=== PATIENT | female | born 1960 | race Caucasian/White ===

== ENCOUNTER 2020-01-11 08:06 | Outpatient (CLI) | payer OTHER, SELFPAY ==
[2020-01-11 08:43] LABS: Basophils Absolute Auto 0.1 K/mm3 (0.0-0.1); Basophils Percent Auto 1.3 % (0.2-1.2); Eosinophils Absolute Auto 0.1 K/mm3 (0-0.3); Eosinophils Percent Auto 2.4 % (0-4.4); Hematocrit 43.1 % (37.0-47.0); Hemoglobin 14.3 g/dL (12.0-15.0); Immature Granulocyte Absolute 0.03 K/mm3 (0.00-0.031); Immature Granulocyte Percent A 0.6 % (0-0.5); Lymphocytes Absolute Auto 1.43 K/mm3 (0.9-3.2); Lymphocytes Percent Auto 26.8 % (18.3-44.2); Mean Corpuscular HGB Conc 33.2 g/dl (32-36); Mean Corpuscular Hemoglobin 28.4 pg (26-34); Mean Corpuscular Volume 85.5 fl (80-100); Mean Platelet Volume 9.2 fl (7.4-10.4); Monocytes Absolute Auto 0.4 K/mm3 (0.1-0.6); Monocytes Percent Auto 6.8 % (2.6-8.5); Neutrophils Absolute Auto 3.3 K/mm3 (1.3-6.7); Neutrophils Percent Auto 62.1 % (45.5-73.1); Platelet Count Result 226 k/mm3 (150-375); Red Blood Count 5.04 M/mm3 (4.2-5.4); Red Cell Distribution Width 13.1 % (11.5-14.5); White Blood Count 5.3 K/mm3 (4.5-10.0)
[2020-01-11 08:47] LABS: Add Urine Microscopic? YES; Appearance Urine Clear (Clear); Bilirubin Urine Negative (Negative); Blood Urine Negative (Negative); Color Urine Straw (Yellow); Glucose Urine UA Negative (Negative); Ketones Urine Negative (Negative); Leukocyte Esterase Ur Trace LEU/UL (Negative); Nitrate Urine Negative (Negative); Protein Urine Negative (Negative); RBC Urine 0-2 /hpf (0-2); Specific Grav Ur 1.008 (1.001-1.035); Squamous Epithelial Cell Urine Rare /hpf (Few); Urobilinogen Urine Negative mg/dL (<2.0)
[2020-01-11 08:55] LABS: Alanine Aminotransferase 34 U/L (4-35); Albumin Level 4.3 g/dL (3.5-5.1); Alkaline Phosphatase 70 U/L (38-126); Anion Gap 6 mmol/L (8-16); Aspartate Amino Transferase 29 U/L (14-36); Bilirubin,Total 0.4 mg/dL (0.2-1.3); Blood Urea Nitrogen 16 mg/dL (7-17); Calcium 9.3 mg/dL (8.4-10.2); Carbon Dioxide 29 mmol/L (22-30); Chloride 105 mmol/L (98-107); Cholesterol 151 mg/dL (0-200); Estimated Glomerular Filt Rate > 60; Glucose 117 mg/dL (65-105); HDL Direct 46 mg/dL; Potassium 4.1 mmol/L (3.4-5.0); Sodium 140 mmol/L (137-145); Triglycerides 88 mg/dL (<150)
[2020-01-11 09:00] LABS: Hemoglobin A1C 5.7 % (<5.7)
[2020-01-11 09:06] LABS: LDL Cholesterol Direct 86 mg/dL
[2020-01-11 09:35] LABS: Free T4 Free Thyroxine 0.74 ng/mL (0.78-2.19)
== END 2020-01-11 08:07 | disposition home or self-care (01) ==
LOC: ANHLAB 08:08
PROVIDERS: PCP Physician Assistant; Visit Provider Physician Assistant
DX: I25.10 Atherosclerotic heart disease of native coronary artery without angina pectoris (principal); E03.9 Hypothyroidism, unspecified; Z13.1 Encounter for screening for diabetes mellitus; E55.9 Vitamin D deficiency, unspecified; Z79.899 Other long term (current) drug therapy
CPT/HCPCS: 36415; 80048; 80061; 80076; 81001; 82306; 83036; 84439; 84443; 85025

== ENCOUNTER 2020-02-29 16:25 | Outpatient (CLI) | payer OTHER, SELFPAY ==
--- NOTE | ~2020-02-29 | CT_ITS ---
EXAMINATION: CT soft tissue neck w con DATE: 02/29/2020 17:10 INDICATION: Localized swelling, mass, and lump of the neck. TECHNIQUE: Computed tomography (CT) of the neck was performed with 75 mL Omnipaque-350 intravenous co ntrast. Automated exposure control and iterative reconstruction technique were employed. The dose-sage gth product was 446.88 mGy-cm. COMPARISON: Chest CT 09/08/2018 FINDINGS: There are changes of right hemithyroidectomy. There are no pathologically enlarged lymph no robb. There is plaque in the proximal internal carotid arteries with less than 50% stenosis relative t o normal distal artery lumen diameters. There is mild mucosal thickening in the maxillary sinuses. Th e mastoid air cells are normal. There is mild cervical spondylosis. IMPRESSION: 1. No abnormal mass or lymphadenopathy. Reviewed, dictated and finalized at location A.
[2020-02-29 17:19] LABS: Estimated Glomerular Filt Rate > 60
== END 2020-02-29 16:26 | disposition home or self-care (01) ==
LOC: ANHIMG 16:26
PROVIDERS: PCP Physician Assistant; Visit Provider Physician Assistant
DX: R22.1 Localized swelling, mass and lump, neck (principal)
CPT/HCPCS: 70491; Q9967

== ENCOUNTER 2020-04-08 11:18 | Outpatient (CLI) | payer OTHER, SELFPAY ==
--- NOTE | 2020-04-20 16:06 | WPDHOMESLEEP ---
Sleep Study - Home Unattended Date of Study: 04/08/20 Ordering Provider: Christina Myles PA-C Interpreting Physician: Clarice Lee MD Home Sleep Study Type: Watch PAT Height: 1.55 m Weight: 98.883 kg Body Mass Index: 41.1 Neck Circumference (inches): 14 [place]: 1 Reason for Sleep Study Sleep walking Sleep History Autumn Landry is a 59 yo female who feels tired in the day and has sleep walked at night. she took a sleep aid for several weeks but stopped it because she did not like the way she felt the day after. She frequently snores and is frequently loud enough that others complain about it. She rarely awakens at night with heartburn, belching or coughing. She occasionally awakens from sleep feeling short of breath. She occasionally has trouble sleeping with a cold, occasionally wakes up gasping for breath during the night. She occasionally sweats excessively at night and notices her heart pounding or beating irregularly at night. She rarely falls asleep during the day, rarely involuntarily, never while driving. She does not fall asleep during physical effort. She does not have loss of muscle tone with strong emotion. She rarely has daytime difficulties due to excessive sleepiness. She does not feel paralyzed on waking or falling asleep and does not have vivid dreamlike scenes upon awakening or falling asleep. She has never a freight to go to sleep. She rarely has nightmares. She occasionally remembers her dreams. She frequently has racing thoughts. She rarely feels sad or depressed. She frequently has anxiety. She occasionally has muscular tension. She never notices parts of her body jerking at night. She occasionally kicks at night. She rarely has crawling or aching feelings in her legs around bedtime. She rarely has leg pain during the night. She frequently has morning jaw pain and frequently grinds her teeth during sleep. Normal bedtime is between 8:00 and 9:00 p.m. falling asleep within 15 minutes, waking 4-6 times at night to go to the bathroom, take a drink of water and reposition. She wakes in the morning at 5:00 a.m.. She does not take naps. She feels better in the morning compared to other times a day. Habits: She never smoked tobacco, two cups of coffee in the morning, 1-2 alcoholic beverages on occasion. [facility] Past Medical History Medical History (Updated 04/20/20 @ 16:43 by Clarice Lee MD) Hyperlipidemia Hypertension Hypothyroidism Osteoarthritis of both knees Surgical History Surgical History History of bladder surgery History of hysterectomy History of thyroid surgery History of tubal ligation Family History Family History Mother Family history of malignant neoplasm Father Family history of elevated blood lipids Mother Family history of diabetes mellitus in first degree relative Mother Cancer Social History Social History Smoking status: Never smoker Second hand tobacco smoke exposure: No Alcohol intake: current Drinks per week: 3 Spiritual care concerns: No Medications Home Medications Medication Instructions Recorded Confirmed Type calcium polycarbophil 625 mg tablet 1,250 mg PO DAILY 05/08/19 04/18/20 History cholecalciferol (vitamin D3) 25 1,000 unit PO HS 05/08/19 04/18/20 History mcg (1,000 unit) capsule meloxicam 7.5 mg tablet 7.5 mg PO DAILY 05/08/19 04/18/20 History metoprolol succinate 100 mg 100 mg PO DAILY 05/08/19 04/18/20 History capsule sprinkle, ext. release 24 hr multivitamin 1 tablet PO HS 05/08/19 04/18/20 History aspirin 81 mg tablet,delayed 81 mg PO HS 01/27/20 04/18/20 History release hydrochlorothiazide 25 mg PO QAM 04/18/20 04/18/20 History levothyroxine [Euthyrox] 112 mcg PO QAM 04/18/20 04/18/20 History losartan 100 mg PO QAM 04/18/20 04/18/20 His
[2020-04-20 16:11] VITALS: BMI 41.1
== END 2020-04-08 11:19 | disposition home or self-care (01) ==
LOC: ANHCSM 11:18
PROVIDERS: PCP Physician Assistant; Visit Provider Physician Assistant
DX: G47.33 Obstructive sleep apnea (adult) (pediatric) (principal)
CPT/HCPCS: 95800

== ENCOUNTER 2020-04-18 08:00 | Outpatient (CLI) | payer OTHER, SELFPAY ==
--- NOTE | 2020-04-18 08:54 | ECG_ITS ---
Measurements Intervals [place] Rate: 67 P: 37 VA: 124 QRS: -1 QRSD: 100 T: 32 QT: 382 QTc: 404 Interpretive Statements SINUS RHYTHM INCOMPLETE RIGHT BUNDLE BRANCH BLOCK VOLTAGE CRITERIA FOR LVH- I, III, AVL BORDERLINE ECG Electronically Signed On 04-18-2020 11:22:19 [employer] by Jesse Fam D.O.
[2020-04-18 09:10] LABS: Basophils Absolute Auto 0.1 K/mm3 (0.0-0.1); Basophils Percent Auto 1.4 % (0.2-1.2); Eosinophils Absolute Auto 0.1 K/mm3 (0-0.3); Eosinophils Percent Auto 1.6 % (0-4.4); Hematocrit 43.4 % (37.0-47.0); Hemoglobin 14.7 g/dL (12.0-15.0); Immature Granulocyte Absolute 0.02 K/mm3 (0.00-0.031); Immature Granulocyte Percent A 0.4 % (0-0.5); Lymphocytes Absolute Auto 1.62 K/mm3 (0.9-3.2); Lymphocytes Percent Auto 28.5 % (18.3-44.2); Mean Corpuscular HGB Conc 33.9 g/dl (32-36); Mean Corpuscular Hemoglobin 29.2 pg (26-34); Mean Corpuscular Volume 86.1 fl (80-100); Monocytes Absolute Auto 0.5 K/mm3 (0.1-0.6); Neutrophils Absolute Auto 3.4 K/mm3 (1.3-6.7); Neutrophils Percent Auto 59.1 % (45.5-73.1); Platelet Count Result 242 k/mm3 (150-375); Red Blood Count 5.04 M/mm3 (4.2-5.4); Red Cell Distribution Width 12.8 % (11.5-14.5); White Blood Count 5.7 K/mm3 (4.5-10.0)
[2020-04-18 09:25] LABS: Anion Gap 5 mmol/L (8-16); Blood Urea Nitrogen 15 mg/dL (7-17); Calcium 9.6 mg/dL (8.4-10.2); Carbon Dioxide 34 mmol/L (22-30); Chloride 103 mmol/L (98-107); Estimated Glomerular Filt Rate > 60; Glucose 108 mg/dL (65-105); Sodium 142 mmol/L (137-145)
== END 2020-04-18 08:01 | disposition home or self-care (01) ==
LOC: ANHSURGERY 08:03
PROVIDERS: Anesthesiology; PCP Physician Assistant; Visit Provider Orthopaedic Surgery
DX: Z01.818 Encounter for other preprocedural examination (principal); M17.12 Unilateral primary osteoarthritis, left knee; I10 Essential (primary) hypertension; I45.10 Unspecified right bundle-branch block
CPT/HCPCS: 36415; 80048; 85025; 93005

== ENCOUNTER 2020-05-06 15:57 | Outpatient (CLI) | payer OTHER, SELFPAY ==
--- NOTE | ~2020-05-06 | MM_ITS ---
EXAMINATION: MM screening tete BI w graciela HISTORY: Screening TECHNIQUE: Craniocaudal and mediolateral oblique 3-D tomosynthesis images were obtained and synthetic 2-D images were generated. CAD analysis was submitted and interpreted. COMPARISON: Comparison to multiple prior studies sequentially, with oldest reviewed study dated 03/03. BREAST PARENCHYMAL COMPOSITION: There are scattered areas of fibroglandular density. FINDINGS: There is no evidence of suspicious mass, calcification, or architectural distortion to sugg est malignancy in either breast. There has been no suspicious interval change. IMPRESSION: 1. No mammographic evidence of malignancy. 2. Recommend routine screening mammography in one year. BI-RADS Category 1: Negative Reviewed, dictated and finalized at location A. MILLER
== END 2020-05-06 15:58 | disposition home or self-care (01) ==
LOC: ANHIMG 16:00
PROVIDERS: PCP Physician Assistant; Visit Provider Physician Assistant
DX: Z12.31 Encounter for screening mammogram for malignant neoplasm of breast (principal)
CPT/HCPCS: 77063; 77067

== ENCOUNTER 2020-05-14 00:31 | Outpatient (CLI) | payer OTHER, SELFPAY ==
[2020-05-14 20:15] LABS: SARS-CoV-2 RNA PCR Negative
== END 2020-05-14 00:32 | disposition home or self-care (01) ==
LOC: ANHCOVIDDT 00:31
PROVIDERS: PCP Physician Assistant; Visit Provider Orthopaedic Surgery
DX: Z01.818 Encounter for other preprocedural examination (principal); Z20.828 Contact with and (suspected) exposure to other viral communicable diseases
CPT/HCPCS: 87635; C9803; U0003

== ENCOUNTER 2020-05-17 00:29 | Day surgery (SDC) | payer OTHER, SELFPAY ==
[2020-04-18 08:52] VITALS: BP 159/79; PULSE 68; RESP 16; TEMP 37.3; O2SAT 99; BMI 39.5
--- NOTE | 2020-05-16 12:26 | WPDANESEPPF ---
Anes - Initial Pre Proc Eval Procedure: Operation Date: 05/17/20 07:30 Proposed Procedures p Left Partial Knee Arthroplasty - Faraz Grey MD Date/Time: 05/16/20 12:26 Surgeon: Faraz Grey MD Pre Op Diagnosis: DJD Left Knee Patient Data Age: 59 Gender: F Height: 1.57 m Weight: 98.1 kg Last Vital Signs Temp 37.3 C 04/18/20 08:52 Pulse 68 04/18/20 08:52 Resp 16 04/18/20 08:52 BP 159/79 H 04/18/20 08:52 Pulse Ox 99 04/18/20 08:52 Allergies Allergy/AdvReac Type Severity Reaction Status Date / Time poison myke extract Allergy Unknown Skin Verified 05/17/20 06:43 Reaction Home Medications Medication Instructions Recorded Confirmed Type calcium polycarbophil 625 mg tablet 1,250 mg PO DAILY 05/08/19 05/17/20 History cholecalciferol (vitamin D3) 25 1,000 unit PO HS 05/08/19 05/17/20 History mcg (1,000 unit) capsule meloxicam 7.5 mg tablet 7.5 mg PO DAILY 05/08/19 05/17/20 History metoprolol succinate 100 mg 100 mg PO DAILY 05/08/19 05/17/20 History capsule sprinkle, ext. release 24 hr multivitamin 1 tablet PO HS 05/08/19 05/17/20 History aspirin 81 mg tablet,delayed 81 mg PO HS 01/27/20 05/17/20 History release hydrochlorothiazide 25 mg PO QAM 04/18/20 05/17/20 History levothyroxine [Euthyrox] 112 mcg PO QAM 04/18/20 05/17/20 History losartan 100 mg PO QAM 04/18/20 05/17/20 History rosuvastatin 20 mg PO HS 04/18/20 05/17/20 History Patient hx anesthesia problems: none Family hx anesthesia problems: none [facility] Past Medical History Medical History (Updated 05/16/20 @ 12:26 by Hermilo Da Silva DO) CAD (coronary artery disease) Hyperlipidemia Hypertension Hypothyroidism Osteoarthritis of both knees Surgical History Surgical History (Updated 05/16/20 @ 12:26 by Hermilo Da Silva DO) History of bladder surgery History of coronary artery stent placement 2019x1 History of hysterectomy History of thyroid surgery History of tubal ligation Family History Family History Mother Family history of malignant neoplasm Father Family history of elevated blood lipids Mother Family history of diabetes mellitus in first degree relative Mother Cancer Social History Social History Smoking status: Never smoker Second hand tobacco smoke exposure: No Alcohol intake: current Drinks per week: 3 Living arrangements: with family Spiritual care concerns: No Anes - Eval Final PreProcedure Day of Procedure 05/16/20 12:26 Patient weight: obese Heart: regular rate and rhythm Lungs: clear to auscultation and normal air movement Airway: Mallampati scale class II Neurological: alert and oriented Last oral intake: >/= 8 hours ASA classification: III Emergent: no Anesthetic plan: proceed Anesthesia type and monitoring: regional spinal and standard monitoring Informed Consent: The patient's anesthetic plan and its attendant risks and benefits were discussed with the patient/family/POA. Questions were solicited and answers provided to the satisfaction of the patient/family/POA.
--- NOTE | 2020-05-16 12:26 | WPDANESPNB ---
Anes - Peripheral Nerve Block Date/Time: 05/16/20 12:26 I have discussed with the patient/family/POA the placement of a peripheral nerve block for post-operative pain management, including associated risks, benefits, complications, and side effects. Alternative methods of post-operative analgesia were detailed. Questions were solicited and answers provided to the satisfaction of the patient/family/POA. Time-Out: A pre-procedural Time-Out was completed immediately before starting the procedure and confirmed: Patient Identification, Site, Procedure, Patient Position and the Availability of Requisite Equipment. Clinical Indications: Acute post-operative pain management requested by the operative surgeon. Nerve Block Insertion Note Anes-nerve block: adductor canal right Patient position: supine Skin prep: chlorhexidine Needle: 22 gauge, stimulating, insulated echogenic needle. Needle length: 80 mm Technique: ultrasound Injectate: bupivacaine 0.5% with epi 5 mcg/ml (30cc) Observations: tolerated well Complications: none Procedure start time:: 723 Procedure end time:: 726
[2020-05-17] VITALS (11 sets, daily range): BP systolic 97–147; BP diastolic 46–89; PULSE 50–82; RESP 10–16; TEMP 36.4; O2SAT 95–100
--- NOTE | ~2020-05-17 | XR_ITS ---
EXAMINATION: XR knee LT 2V DATE: 05/17/2020 09:58 INDICATION: Left knee arthroplasty. Postop. TECHNIQUE: 2 views of left knee were obtained. COMPARISON: Left knee radiographs 04/18/2020 FINDINGS: There is a medial compartment arthroplasty in near-anatomic alignment. There is mild osteoa rthritis of lateral and patellofemoral compartments characterized by tiny marginal osteophytes. There is gas in the knee joint and soft tissues, consistent with recent surgery. IMPRESSION: 1. New medial compartment arthroplasty in near-anatomic alignment. 2. Mild osteoarthritis of lateral and patellofemoral compartments. Reviewed, dictated and finalized at location A. SING SUPERVISOR
[2020-05-17] MEDS: ACETAMINOPHEN 500 MG TABLET 1000 MG PO (06:48)
[2020-05-17] MEDS: LACTATED RINGERS 1,000 ML 30 ML IV CONT ×2 (06:50→09:49)
[2020-05-17] MEDS: TRANEXAMIC ACID 1,000MG/ISO100 1,000 MG/100 ML BAG 200 MG IVPB (06:50)
--- NOTE | 2020-05-17 07:19 | WPDHPUPDATE1 ---
History and Physical Update Update Date/Time: 05/17/20 07:19 History and Physical has been reviewed, including an updated exam of the patient. There are NO changes in the patient's condition. Risks, benefits, and alternatives have been discussed and questions answered. Patient agrees to proceed with procedure.
[2020-05-17] MEDS: ceFAZolin 2 GM/D5W 50 ML 2 GM/50 ML BAG IVPB (07:40)
[2020-05-17] MEDS: GENTAMICIN BONE CEMENT REFOBACIN 1 EACH TOPICAL (07:55)
--- NOTE | 2020-05-17 10:11 | P.OP_ITS ---
Procedure Note - Detailed Date of procedure: 05/17/20 Pre-op diagnosis: DJD Left Knee Post-op diagnosis: same Procedure performed: Partial knee arthroplasty, medial compartment, left knee. Implants: Triathlon PKR X3 system tibial insert size #3, 10 mm thickness, femoral component size 3. Tibial base tibial base plate size 3. Anesthesia: GETA and regional (subsartorial block.) Surgeon: Faraz Grey MD Estimated blood loss (mL): 50 Drains: No Complications: None Findings: Physician general office assistant required for surgery; including patient positioning, draping, tissue retraction, maintaining instrument position, cement removal, wound closure, and dressing placement. Operative details: The patient was given a general anesthetic. Preoperative antibiotics were given. The knee was prepped and draped in the usual sterile fashion. A longitudinal incision was created along the medial aspect of the patellar tendon. A minimally invasive optimized mid vastus approach was completed. No medial release was taken. The external alignment guide was used to cut the tibia with anatomic posterior slope. A 4 millimeter resection was taken. The spacer block technique was utilized to measure flexion and extension gaps after the osteophytes were removed. The difference was used to calculate the distal resection. The distal cutting block was utilized to cut the distal femur. The AP and chamfer block was utilized for this last cuts. The femur and tibia were sized. Range of motion and gap balancing was assessed. This was tested with the 1.5 millimeter spacer. The bony surfaces were cleaned with lavaged. Lug holes were drilled. The real components were cemented into position. Excess cement was carefully removed. The tourniquet was released. Meticulous hemostasis was maintained. The wound was closed with interrupted 1 Vicryl suture followed by a running 0 Quill suture and 2-0 Quill suture. Steri- Strips are placed in the skin the patient was extubated and brought to recovery room in stable condition. There were no complications.
--- NOTE | 2020-05-17 17:57 | SUR.PHASEII ---
pt had a meal, had pt with beth colby saw pt before leaving. and dee dee gave their ok.
== END 2020-05-17 13:40 | disposition home or self-care (01) ==
PROVIDERS: PCP Physician Assistant; Visit Provider Orthopaedic Surgery
PROC: (CPT 27446; principal; 2020-05-17 07:30)
DX: M17.12 Unilateral primary osteoarthritis, left knee (principal); G89.18 Other acute postprocedural pain; I10 Essential (primary) hypertension; E78.5 Hyperlipidemia, unspecified; I25.10 Atherosclerotic heart disease of native coronary artery without angina pectoris; E03.9 Hypothyroidism, unspecified; Z79.82 Long term (current) use of aspirin; Z95.5 Presence of coronary angioplasty implant and graft; E66.9 Obesity, unspecified; Z68.38 Body mass index [BMI] 38.0-38.9, adult
CPT/HCPCS: 27446; 64447; 73560; 97161; A9270; C1713; C1776; J0171; J0690; J1885; J2250; J2270; J2370; J2405; J2704; J2795; J3010; J7120

== ENCOUNTER 2020-07-14 08:15 | Outpatient (RCR) | payer OTHER, SELFPAY ==
--- NOTE | 2020-05-23 13:48 | PTOPEVAL ---
PHYSICAL THERAPY EVALUATION AND PLAN OF CARE Thank you for referring Autumn Landry to [facility].? The patient is scheduled to be seen for therapy? 2x/week for 4-6 weeks. Please review, sign, date and return this plan of care JINNY. I agree with and certify that the following plan of care is medically necessary. Referring Physician Date Attending Provider: Faraz Grey MD Evaluation Outpatient Past Medical History Neurological History Hx Neurological Disorders No Significant History Cardiovascular History Hx Coronary Stent Yes: SEPTEMBER 2018 ONE STENT Hx Hypertension Yes Hx Other Cardiac Disorders Yes: DR CARSON ONCE A YR. WORKS OUT 3 X WK Respiratory History Hx Other Respiratory Disorders Yes: HAD A SLEEP STUDY TEST BUT HASN'T RECEIVED RESULTS Gastrointestinal History Hx Gastrointestinal Disorders No Significant History Genitourinary History Hx Bladder Surgery Yes: BLADDER TIE UP WITH MESH Musculoskeletal History Hx Arthritis Yes: KNEES Hx Other Musculoskeletal Disorders Yes: DJD LT KNEE Hematological History Hx Hematological Disorders No Significant History Endocrine History Hx Hypothyroidism Yes Hx Thyroidectomy Yes HEENT History Hx Tonsillectomy Yes: A CHILD Hx Other HEENT Disorders Yes: GLASSES Integumentary History Hx Skin Disorders No Significant History Reproductive History Hx Hysterectomy Yes Hx Tubal Ligation Yes Psychosocial History Hx Anxiety Yes: NO MEDS Pain History History of Any Previous or Ongoing No Significant History Instance of Pain Anesthesia History Hx Anesthesia Reactions No Significant History Diagnosis left partial knee arthroplasty Onset 05/16/2020 Subjective Information 1 week s/p left PKA. States Query Text:As Reported By Patient/ that she is been having more Family pain than she expected to have . Trying to keep up with her exercises and feeling like she is doing well, except for trying to bend one. States she is trying not to over do her activity level. States she has been surprised by the amount of swelling and the amount of pain she has had. Taking pain medication every 6 hours as prescribed. Self Report Pain Assessment Left Knee(s) Reported Pain Level 4 Pain Description Aching Lowest Pain Intensity 1
--- NOTE | 2020-06-23 09:46 | PTOPEVAL ---
PHYSICAL THERAPY PLAN OF CARE UPDATE Thank you for referring uAtumn Landry to [facility].? The patient is scheduled to be seen for therapy? 2x/week for 4 weeks. Please review, sign, date and return this plan of care JINNY. I agree with and certify that the following plan of care is medically necessary. Referring Physician Date Attending Provider: Faraz Grey MD Progress Diagnosis left partial knee arthroplasty Onset 05/16/2020 Subjective Information 5 week s/p left PKA. Reports Query Text:As Reported By Patient/ difficulty with flexing the Family knee but otherwise doing well. Self Report Pain Assessment Left Knee(s) Reported Pain Level 2 Pain Description Aching,Soreness Pain Behaviors None Pain Score Pain Score 2: Self Report Interventions Used Interventions Used By Clinicians Exercise,Ice Pain Relief Interventions Used By Exercise,Ice Patient Lower Extremity Range of Motion Knee Range of Motion Left Knee Flexion Range of Motion - Active 107 Knee Extension Range of Motion - Active 0 Query Text: Lower Extremity Muscle Strength Testing Knee Strength Left Knee Flexion Strength 5 Normal Knee Extension Strength 4- Good - Gait Assessment Gait Assessment Ambulation Assistive Devices None Weight Bearing Status - Left As Tolerated Weight Bearing Status - Right Full Maintains Weight Bearing Status Yes Ambulation Distance throughout appointment Query Text:(Feet) Ambulation Destination In Gym Ambulation Ability Independent PT Clinical Summary Autumn is a 59 yo female presenting to outpatient physical therapy 5 week s/p left partial knee arthroplasty . Autumn continues to demonstrate mild strength and ROM deficits which will benefit from skilled PT to progress and continue to rehabilitate well. PT Services Indicated Yes Rehabilitation Potential Excellent Potential Barriers to Goal Achievements None Support Requirements For Optimal None [place] Patient/Caregiver Informed of Benefits/ Yes Risks of Rehabilitation Patient/Caregiver Participated in Plan Yes of Care Patient/Caregiver Agreed with Problem Yes List/POC/Goals Treatment Frequency and Duration 2x/week for 4 weeks
--- NOTE | 2020-06-30 14:07 | PCPTNOTE ---
Patient called & cancelled scheduled appointment this date due to not feeling well.
--- NOTE | 2020-07-14 08:36 | PTOPEVAL ---
PHYSICAL THERAPY DISCHARGE NOTE Thank you for referring Autumn Landry to [facility]. Please review, sign, date and return this plan of care JINNY. I agree with and certify that the following plan of care is medically necessary. Referring Physician Date Attending Provider: Faraz Grey MD Discharge Diagnosis left partial knee arthroplasty Onset 05/16/2020 Subjective Information 8.5 week s/p left PKA. Query Text:As Reported By Patient/ continues to progress steadily Family . Pain is minimal. Gets stiffness and swelling with more activity. Pain Assessment Timing of Pain Assessment Timing of Pain Assessment Pre-Treatment Self Report Self Report Pain Level 0 Pain Score Pain Score 0: Self Report Lower Extremity Range of Motion Knee Range of Motion Left Knee Flexion Range of Motion - Active 111 Knee Extension Range of Motion - Active 0 Query Text: Lower Extremity Muscle Strength Testing Knee Strength Left Knee Flexion Strength 5 Normal Knee Extension Strength 5 Normal Balance Assessment 5 Time Sit to Stand Time in Seconds 12.49 Gait Assessment 2 Minute Walk Total Distance Walked (feet) 439 2 Minute Walk Gait Speed Score (feet/ 3.65 second) PT Clinical Summary Autumn is a 59 yo female presenting to outpatient physical therapy 8.5 week s/p left partial knee arthroplasty . Autumn demonstrates normal strength and WNL left knee ROM. I recommend discharge from PT at this time. PT Services Indicated No Rehabilitation Potential Excellent Potential Barriers to Goal Achievements None Support Requirements For Optimal None [place] Patient/Caregiver Informed of Benefits/ Yes Risks of Rehabilitation Patient/Caregiver Participated in Plan Yes of Care Patient/Caregiver Agreed with Problem Yes List/POC/Goals
== END 2020-07-14 11:37 | disposition home or self-care (01) ==
LOC: ANHPT 08:15
PROVIDERS: PCP Physician Assistant; Referring Provider Orthopaedic Surgery; Visit Provider Orthopaedic Surgery
DX: Z47.1 Aftercare following joint replacement surgery (principal); Z96.652 Presence of left artificial knee joint
CPT/HCPCS: 97110; 97140; 97161

== ENCOUNTER 2020-08-23 15:48 | Outpatient (CLI) | payer OTHER, SELFPAY ==
[2020-08-23 16:09] LABS: Basophils Absolute Auto 0.1 K/mm3 (0.0-0.1); Basophils Percent Auto 1.2 % (0.2-1.2); Eosinophils Absolute Auto 0.1 K/mm3 (0-0.3); Eosinophils Percent Auto 1.9 % (0-4.4); Hematocrit 41.4 % (37.0-47.0); Immature Granulocyte Absolute 0.01 K/mm3 (0.00-0.031); Immature Granulocyte Percent A 0.2 % (0-0.5); Lymphocytes Absolute Auto 1.91 K/mm3 (0.9-3.2); Lymphocytes Percent Auto 29.7 % (18.3-44.2); Mean Corpuscular HGB Conc 33.8 g/dl (32-36); Mean Corpuscular Hemoglobin 28.7 pg (26-34); Mean Corpuscular Volume 84.8 fl (80-100); Mean Platelet Volume 9.3 fl (7.4-10.4); Monocytes Absolute Auto 0.5 K/mm3 (0.1-0.6); Monocytes Percent Auto 7.9 % (2.6-8.5); Neutrophils Absolute Auto 3.8 K/mm3 (1.3-6.7); Neutrophils Percent Auto 59.1 % (45.5-73.1); Platelet Count Result 239 k/mm3 (150-375); Red Blood Count 4.88 M/mm3 (4.2-5.4); Red Cell Distribution Width 13.3 % (11.5-14.5); White Blood Count 6.4 K/mm3 (4.5-10.0)
[2020-08-23 16:23] LABS: Alanine Aminotransferase 32 U/L (4-35); Albumin Level 4.3 g/dL (3.5-5.1); Alkaline Phosphatase 66 U/L (38-126); Anion Gap 5 mmol/L (8-16); Aspartate Amino Transferase 30 U/L (14-36); Bilirubin,Total 0.2 mg/dL (0.2-1.3); Blood Urea Nitrogen 14 mg/dL (7-17); Calcium 9.5 mg/dL (8.4-10.2); Carbon Dioxide 32 mmol/L (22-30); Chloride 104 mmol/L (98-107); Cholesterol 145 mg/dL (0-200); Estimated Glomerular Filt Rate > 60; Glucose 115 mg/dL (65-105); HDL Direct 51 mg/dL; Potassium 3.5 mmol/L (3.4-5.0); Sodium 141 mmol/L (137-145); Triglycerides 92 mg/dL (<150)
[2020-08-23 16:35] LABS: LDL Cholesterol Direct 72 mg/dL
[2020-08-23 16:52] LABS: Thyroid Stimulating Hormone 0.821 uIU/mL (0.465-4.680)
[2020-08-23 16:59] LABS: Hemoglobin A1C 5.4 % (<5.7)
[2020-08-23 18:15] LABS: Free T4 Free Thyroxine 1.02 ng/mL (0.78-2.19); Vitamin D 25 Hydroxy 51.3 ng/mL
== END 2020-08-23 15:49 | disposition home or self-care (01) ==
LOC: ANHLAB 15:50
PROVIDERS: PCP Physician Assistant; Visit Provider Physician Assistant
DX: Z13.1 Encounter for screening for diabetes mellitus (principal); I25.10 Atherosclerotic heart disease of native coronary artery without angina pectoris; Z51.81 Encounter for therapeutic drug level monitoring; Z79.899 Other long term (current) drug therapy; E55.9 Vitamin D deficiency, unspecified
CPT/HCPCS: 36415; 80048; 80061; 80076; 82306; 83036; 84439; 84443; 85025

== ENCOUNTER 2021-03-18 07:30 | Outpatient (CLI) | payer OTHER, SELFPAY ==
[2021-03-18 07:57] LABS: Add Urine Microscopic? YES; Appearance Urine Clear (Clear); Bilirubin Urine Negative (Negative); Blood Urine 1+ (Negative); Color Urine Yellow (Yellow); Glucose Urine UA Negative (Negative); Ketones Urine Negative (Negative); Leukocyte Esterase Ur 1+ LEU/UL (Negative); Mucus Urine Rare /lpf; Nitrate Urine Negative (Negative); Protein Urine Negative (Negative); Specific Grav Ur 1.018 (1.001-1.035); Squamous Epithelial Cell Urine Occasional /hpf (Few); Urobilinogen Urine Negative mg/dL (<2.0)
[2021-03-18 08:15] LABS: Basophils Absolute Auto 0.1 K/mm3 (0.0-0.1); Basophils Percent Auto 1.6 % (0.2-1.2); Eosinophils Absolute Auto 0.1 K/mm3 (0-0.3); Eosinophils Percent Auto 2.4 % (0-4.4); Hemoglobin 14.4 g/dL (12.0-15.0); Immature Granulocyte Absolute 0.03 K/mm3 (0.00-0.031); Immature Granulocyte Percent A 0.6 % (0-0.5); Lymphocytes Absolute Auto 1.29 K/mm3 (0.9-3.2); Lymphocytes Percent Auto 25.5 % (18.3-44.2); Mean Corpuscular HGB Conc 33.5 g/dl (32-36); Mean Corpuscular Hemoglobin 28.8 pg (26-34); Mean Platelet Volume 9.2 fl (7.4-10.4); Monocytes Absolute Auto 0.4 K/mm3 (0.1-0.6); Monocytes Percent Auto 7.1 % (2.6-8.5); Neutrophils Absolute Auto 3.2 K/mm3 (1.3-6.7); Neutrophils Percent Auto 62.8 % (45.5-73.1); Platelet Count Result 242 k/mm3 (150-375); Red Cell Distribution Width 12.8 % (11.5-14.5); White Blood Count 5.1 K/mm3 (4.5-10.0)
[2021-03-18 09:13] LABS: Free T4 Free Thyroxine 0.93 ng/mL (0.78-2.19); Vitamin D 25 Hydroxy 55.8 ng/mL
[2021-03-18 10:53] LABS: Hemoglobin A1C 5.8 % (<5.7)
[2021-03-18 10:55] LABS: Alanine Aminotransferase 30 U/L (4-35); Albumin Level 4.4 g/dL (3.5-5.1); Alkaline Phosphatase 66 U/L (38-126); Anion Gap 11 mmol/L (8-16); Aspartate Amino Transferase 27 U/L (14-36); Bilirubin,Total 0.5 mg/dL (0.2-1.3); Blood Urea Nitrogen 17 mg/dL (7-17); Calcium 9.3 mg/dL (8.4-10.2); Carbon Dioxide 28 mmol/L (22-30); Chloride 106 mmol/L (98-107); Cholesterol 144 mg/dL (0-200); Estimated Glomerular Filt Rate > 60; Glucose 127 mg/dL (65-110); HDL Direct 40 mg/dL; Sodium 145 mmol/L (137-145); Triglycerides 76 mg/dL (<150)
[2021-03-18 11:07] LABS: LDL Cholesterol Direct 84 mg/dL
[2021-03-18 11:20] LABS: Thyroid Stimulating Hormone 0.595 uIU/mL (0.465-4.680)
[2021-03-18 11:57] LABS: Folic Acid > 20.0 ng/mL (2.76->20)
[2021-03-22 05:38] LABS: Triiodothyronine T3 Free 3.3 pg/mL (2.3-4.2)
== END 2021-03-18 07:31 | disposition home or self-care (01) ==
LOC: ANHLAB 07:34
PROVIDERS: PCP Physician Assistant; Visit Provider Physician Assistant
DX: E78.5 Hyperlipidemia, unspecified (principal); E03.9 Hypothyroidism, unspecified; Z79.899 Other long term (current) drug therapy; Z13.1 Encounter for screening for diabetes mellitus; R53.83 Other fatigue; E55.9 Vitamin D deficiency, unspecified
CPT/HCPCS: 36415; 80053; 80061; 81001; 82306; 82607; 82746; 83036; 84439; 84443; 84481; 85025; 87086; 87088

== ENCOUNTER 2021-03-24 10:17 | Emergency (ER) | payer OTHER, SELFPAY ==
--- NOTE | 2021-03-24 10:21 | ED.URI ---
HPI - URI/Sore Throat General Chief Complaint: Upper Respiratory Infection Stated Complaint: Sore Throat,LT Ear Pain Time Seen by Provider: 03/24/21 10:25 Source: patient, RN notes reviewed and old records reviewed Mode of arrival: ambulatory Limitations: no limitations History of Present Illness HPI Narrative: 60-year-old female with a history of seasonal allergies, hypertension, arthritis and coronary artery disease presents to the [facility] with 2 days of allergy symptoms to include left ear pain and pressure, sneezing, dry cough, sinus drainage. Only treatment prior to arrival with some Motrin for pain. No other treatment. Denies fevers. No chest pain or abdominal pain. No shortness of breath MD elicited complaint: cough and sore throat Related Data Home Medications Medication Instructions Recorded Confirmed calcium polycarbophil 625 mg tablet 1,250 mg PO DAILY 05/08/19 03/24/21 cholecalciferol (vitamin D3) 25 1,000 unit PO HS 05/08/19 03/24/21 mcg (1,000 unit) capsule meloxicam 7.5 mg tablet 7.5 mg PO DAILY 05/08/19 03/24/21 metoprolol succinate 100 mg 100 mg PO DAILY 05/08/19 03/24/21 capsule sprinkle, ext. release 24 hr multivitamin 1 tablet PO HS 05/08/19 03/24/21 aspirin 81 mg tablet,delayed 81 mg PO HS 01/27/20 03/24/21 release hydrochlorothiazide 25 mg PO QAM 04/18/20 03/24/21 levothyroxine [Euthyrox] 112 mcg PO QAM 04/18/20 03/24/21 losartan 100 mg PO QAM 04/18/20 03/24/21 rosuvastatin 10 mg PO DAILY 03/24/21 03/24/21 Allergies Allergy/AdvReac Type Severity Reaction Status Date / Time poison myke extract Allergy Unknown Skin Verified 03/24/21 10:20 Reaction Review of Systems Review of Systems: All systems reviewed & are unremarkable except as noted in HPI and below Constitutional: Constitutional: Reports no additional constitutional complaints, Denies chills and Denies fever(s) Eyes: Eyes: Reports no additional eye complaints ENT: Reports as per HPI, Reports nasal congestion and Reports sore throat (Dry scratchy) Comments: Rhinorrhea Cardiovascular: Cardiovascular: Reports as per HPI and Denies chest pain Respiratory: Respiratory: Reports as per HPI, Denies chest congestion, Reports cough, Denies dyspnea and Denies wheezing Gastrointestinal: Gastrointestinal: Reports no additional gastrointestinal complaints, Denies abdominal pain and Denies nausea Musculoskeletal: Musculoskeletal: Reports no additional musculoskeletal complaints Integumentary/Breasts: Skin/Breast: Reports system reviewed and no additional complaints, except as docu Neurologic: Reports system reviewed and no additional complaints, except as documented Psychiatric: Psychiatric: Reports no additional psychiatric complaints Allergic/Immunologic: Allergic/Immunologic: Reports no additional allergic/immunologic complaints [facility] Past Medical History Medical History CAD (coronary artery disease) Hyperlipidemia Hypertension Hypothyroidism Osteoarthritis of both knees Surgical History Surgical History History of bladder surgery History of coronary artery stent placement 2019x1 History of hysterectomy History of thyroid surgery History of tubal ligation Status post left partial knee replacement Family History Family History Mother Family history of malignant neoplasm Father Family history of elevated blood lipids Mother Family history of diabetes mellitus in first degree relative Mother Cancer Social History Social History Smoking status: Never smoker Second hand tobacco smoke exposure: No Alcohol intake: current Drinks per week: 3 Spiritual care concerns: No Comments At the time of my signature, I reviewed and agree with the nursing past medical, surgical, social, and family history. There is
[2021-03-24 10:27] VITALS: BP 150/82; PULSE 85; RESP 18; TEMP 36.6; O2SAT 98
== END 2021-03-24 10:39 | disposition home or self-care (01) ==
PROVIDERS: Emergency Provider Nurse Practitioner; PCP Physician Assistant
DX: H66.92 Otitis media, unspecified, left ear (principal); J30.2 Other seasonal allergic rhinitis; I25.10 Atherosclerotic heart disease of native coronary artery without angina pectoris; E78.5 Hyperlipidemia, unspecified; I10 Essential (primary) hypertension; E03.9 Hypothyroidism, unspecified; M17.0 Bilateral primary osteoarthritis of knee; Z95.5 Presence of coronary angioplasty implant and graft; Z96.652 Presence of left artificial knee joint
CPT/HCPCS: 99213; G0463

== ENCOUNTER 2021-05-09 15:52 | Outpatient (CLI) | payer OTHER, SELFPAY ==
--- NOTE | ~2021-05-09 | MM_ITS ---
EXAMINATION: MM screening [facility] BI w graciela HISTORY: Screening TECHNIQUE: Craniocaudal and mediolateral oblique 3-D tomosynthesis images were obtained and synthetic 2-D images were generated. CAD analysis was submitted and interpreted. COMPARISON: Comparison to multiple prior studies sequentially, with oldest reviewed study dated 03/05. BREAST PARENCHYMAL COMPOSITION: The breasts are almost entirely fatty. FINDINGS: There is a cluster of calcifications in the upper outer quadrant of the left breast, middle third. The right breast is stable without evidence for malignancy. IMPRESSION: 1. Focal clustered calcifications upper outer quadrant of the left breast. 2. Magnification views are recommended. BI-RADS Category 0: Incomplete: Needs additional imaging evaluation. Reviewed, dictated and finalized at location A. [employer]
== END 2021-05-09 15:53 | disposition home or self-care (01) ==
PROVIDERS: PCP Physician Assistant; Visit Provider Physician Assistant
DX: Z12.31 Encounter for screening mammogram for malignant neoplasm of breast (principal); R92.8 Other abnormal and inconclusive findings on diagnostic imaging of breast
CPT/HCPCS: 77063; 77067

== ENCOUNTER → 2021-05-15 16:17 | Outpatient (REF) | payer OTHER, SELFPAY | LOC: ANHLAB 16:17 | PROVIDERS: PCP Physician Assistant; Visit Provider Nurse Practitioner | DX: L82.1 Other seborrheic keratosis (principal) | CPT/HCPCS: 88305 ==

== ENCOUNTER 2021-06-23 12:49 | Outpatient (CLI) | payer OTHER, SELFPAY ==
--- NOTE | ~2021-06-23 | MM_ITS ---
Z EXAMINATION: MM diagnostic mammo unilat LT HISTORY: Follow-up left breast calcifications TECHNIQUE: Additional 3-D tomosynthesis images of the left breast were performed and synthetic 2-D im ages were generated. CAD analysis was submitted and interpreted. COMPARISON: 05/09/2021 BREAST PARENCHYMAL COMPOSITION: Breast composed of scattered areas of fibroglandular density FINDINGS: There is a cluster of indeterminate calcifications in the upper outer quadrant of the left breast. There are no suspicious masses or architectural distortion. IMPRESSION: 1. Clustered indeterminate left breast calcifications, upper outer quadrant. 2. Stereotactic left breast biopsy recommended. BI-RADS category 4, suspicious findings. Reviewed, dictated and finalized at location A. [employer]
== END 2021-06-23 12:50 | disposition home or self-care (01) ==
LOC: ANHIMG 12:51
PROVIDERS: PCP Physician Assistant; Visit Provider Physician Assistant
DX: R92.8 Other abnormal and inconclusive findings on diagnostic imaging of breast (principal); R92.1 Mammographic calcification found on diagnostic imaging of breast
CPT/HCPCS: 77065

== ENCOUNTER 2022-06-30 06:52 | Outpatient (CLI) | payer OTHER, SELFPAY ==
[2022-06-30 07:52] LABS: Basophils Absolute Auto 0.1 K/mm3 (0.0-0.1); Basophils Percent Auto 0.9 % (0.2-1.2); Eosinophils Absolute Auto 0.1 K/mm3 (0-0.3); Eosinophils Percent Auto 2.1 % (0-4.4); Hematocrit 43.7 % (37.0-47.0); Hemoglobin 14.4 g/dL (12.0-15.0); Immature Granulocyte Absolute 0.02 K/mm3 (0.00-0.031); Immature Granulocyte Percent A 0.4 % (0-0.5); Lymphocytes Percent Auto 28.4 % (18.3-44.2); Mean Corpuscular Hemoglobin 28.2 pg (26-34); Mean Corpuscular Volume 85.5 fl (80-100); Mean Platelet Volume 9.1 fl (7.4-10.4); Monocytes Absolute Auto 0.4 K/mm3 (0.1-0.6); Monocytes Percent Auto 6.4 % (2.6-8.5); Neutrophils Absolute Auto 3.5 K/mm3 (1.3-6.7); Neutrophils Percent Auto 61.8 % (45.5-73.1); Platelet Count Result 252 k/mm3 (150-375); Red Blood Count 5.11 M/mm3 (4.2-5.4); White Blood Count 5.6 K/mm3 (4.5-10.0)
[2022-06-30 08:09] LABS: Alanine Aminotransferase 30 U/L (6-35); Albumin Level 4.1 g/dL (3.5-5.1); Alkaline Phosphatase 73 U/L (38-126); Anion Gap 6 mmol/L (8-16); Aspartate Amino Transferase 26 U/L (14-36); Bilirubin,Total 0.5 mg/dL (0.2-1.3); Blood Urea Nitrogen 13 mg/dL (7-17); Carbon Dioxide 29 mmol/L (22-30); Chloride 108 mmol/L (98-107); Cholesterol 143 mg/dL (0-200); Estimated Glomerular Filt Rate > 60; Glucose 125 mg/dL (65-110); HDL Direct 44 mg/dL; Sodium 143 mmol/L (137-145); Triglycerides 76 mg/dL (<150)
[2022-06-30 08:21] LABS: LDL Cholesterol Direct 70 mg/dL
[2022-06-30 08:39] LABS: Thyroid Stimulating Hormone 0.754 uIU/mL (0.465-4.680)
[2022-06-30 09:14] LABS: Folic Acid > 20.0 ng/mL (2.76->20)
[2022-06-30 09:18] LABS: Appearance Urine Clear (Clear); Bilirubin Urine Negative (Negative); Blood Urine Trace-intact (Negative); Color Urine Yellow (Yellow); Glucose Urine UA Negative (Negative); Ketones Urine Negative (Negative); Leukocyte Esterase Ur Trace LEU/UL (Negative); Nitrate Urine Negative (Negative); Protein Urine Negative (Negative); Specific Grav Ur 1.025 (1.001-1.035); Urobilinogen Urine 0.2 mg/dL (<2.0); pH Urine 5.5 (5.0-9.0)
[2022-06-30 09:25] LABS: Bacteria Urine Trace /hpf; Mucus Urine Rare /lpf; RBC Urine 0-2 /hpf (0-2); Squamous Epithelial Cell Urine Rare /hpf (Few); WBC Urine 0-3 /hpf
[2022-06-30 09:31] LABS: Add Urine Microscopic? YES
[2022-06-30 10:12] LABS: Free T4 Free Thyroxine 0.94 ng/mL (0.78-2.19)
[2022-06-30 11:19] LABS: Hemoglobin A1C 5.6 % (<5.7)
[2022-07-04 04:40] LABS: Triiodothyronine T3 Free 2.9 pg/mL (2.3-4.2)
[2022-07-05 11:24] LABS: Vitamin D 1,25 (OH)2 Total 28 pg/mL (18-72); Vitamin D2 1,25 (OH)2 <8 pg/mL; Vitamin D3 1,25 (OH)2 28 pg/mL
== END 2022-06-30 06:53 | disposition home or self-care (01) ==
LOC: ANHLAB 06:55
PROVIDERS: PCP Physician Assistant; Visit Provider Physician Assistant
DX: E78.5 Hyperlipidemia, unspecified (principal); E03.9 Hypothyroidism, unspecified; Z13.1 Encounter for screening for diabetes mellitus; Z79.899 Other long term (current) drug therapy
CPT/HCPCS: 36415; 80053; 80061; 81001; 82607; 82652; 82746; 83036; 84439; 84443; 84481; 85025

== ENCOUNTER 2023-01-29 08:03 | Outpatient (CLI) | payer OTHER, SELFPAY ==
[2023-01-29 13:57] LABS: Basophils Absolute Auto 0.1 K/mm3 (0.0-0.1); Basophils Percent Auto 1.1 % (0.2-1.2); Eosinophils Absolute Auto 0.1 K/mm3 (0-0.3); Eosinophils Percent Auto 2.2 % (0-4.4); Hematocrit 44.6 % (37.0-47.0); Hemoglobin 14.4 g/dL (12.0-15.0); Immature Granulocyte Absolute 0.03 K/mm3 (0.00-0.031); Immature Granulocyte Percent A 0.5 % (0-0.5); Lymphocytes Absolute Auto 1.47 K/mm3 (0.9-3.2); Lymphocytes Percent Auto 26.6 % (18.3-44.2); Mean Corpuscular HGB Conc 32.3 g/dl (32-36); Mean Corpuscular Hemoglobin 28.3 pg (26-34); Mean Corpuscular Volume 87.6 fl (80-100); Mean Platelet Volume 9.6 fl (7.4-10.4); Monocytes Absolute Auto 0.4 K/mm3 (0.1-0.6); Monocytes Percent Auto 7.4 % (2.6-8.5); Neutrophils Absolute Auto 3.4 K/mm3 (1.3-6.7); Neutrophils Percent Auto 62.2 % (45.5-73.1); Platelet Count Result 257 k/mm3 (150-375); Red Blood Count 5.09 M/mm3 (4.2-5.4); Red Cell Distribution Width 13.3 % (11.5-14.5); White Blood Count 5.5 K/mm3 (4.5-10.0)
[2023-01-29 14:14] LABS: Alanine Aminotransferase 33 U/L (6-35); Albumin Level 4.2 g/dL (3.5-5.1); Alkaline Phosphatase 72 U/L (38-126); Anion Gap 9 mmol/L (8-16); Aspartate Amino Transferase 59 U/L (14-36); Bilirubin,Total 0.5 mg/dL (0.2-1.3); Blood Urea Nitrogen 15 mg/dL (7-17); Calcium 9.7 mg/dL (8.4-10.2); Carbon Dioxide 29 mmol/L (22-30); Chloride 102 mmol/L (98-107); Cholesterol 143 mg/dL (0-200); Estimated Glomerular Filt Rate > 60; Glucose 92 mg/dL (65-110); HDL Direct 40 mg/dL; Sodium 140 mmol/L (137-145); Triglycerides 81 mg/dL (<150)
[2023-01-29 14:25] LABS: LDL Cholesterol Direct 80 mg/dL
[2023-01-29 14:45] LABS: Thyroid Stimulating Hormone 0.362 uIU/mL (0.465-4.680)
[2023-01-29 17:31] LABS: Hemoglobin A1C 5.6 % (<5.7)
[2023-01-29 19:34] LABS: Free T4 Free Thyroxine 1.12 ng/mL (0.78-2.19)
[2023-02-02 06:51] LABS: Triiodothyronine T3 Free 3.3 pg/mL (2.3-4.2)
== END 2023-01-29 08:04 | disposition home or self-care (01) ==
LOC: ANHWCLAB 08:06
PROVIDERS: PCP Physician Assistant; Visit Provider Physician Assistant
DX: Z00.00 Encounter for general adult medical examination without abnormal findings (principal); R73.03 Prediabetes; E78.5 Hyperlipidemia, unspecified; E03.9 Hypothyroidism, unspecified
CPT/HCPCS: 36415; 80053; 80061; 83036; 84439; 84443; 84481; 85025

== ENCOUNTER 2023-05-10 01:09 | Day surgery (SDC) | payer OTHER, SELFPAY ==
[2023-04-24 10:56] VITALS: BMI 39.5
--- NOTE | 2023-05-08 09:26 | SUR.PREOP ---
Patient called regarding upcoming procedure. Reviewed preop instructions, appointment times, and procedure prep.
--- NOTE | 2023-05-09 17:32 | PM.HPGS ---
History of Present Illness History of Present Illness Consent: Risks, benefits, and alternatives have been discussed and questions answered. Patient agrees to proceed with procedure. Chief complaint: neoplasm screening Narrative: Autumn Landry is a 62 year old female Referred for colon cancer screening. Her last colonoscopy was 7 years ago. Review of Systems Review of Systems: All systems reviewed & are unremarkable except as noted in HPI and below PMFSH Past Medical History Medical History Bleeding nose CAD (coronary artery disease) Hyperlipidemia Hypertension Hypothyroidism Osteoarthritis of both knees Surgical History Surgical History History of bladder surgery History of coronary artery stent placement 2019x1 History of hysterectomy History of thyroid surgery History of tubal ligation Status post left partial knee replacement Family History Family History Mother Family history of malignant neoplasm Father Family history of elevated blood lipids Mother Family history of diabetes mellitus in first degree relative Mother Cancer Son Asthma Depression Anxiety Social History Social History Social History: Caffeine- coffee daily Smoking status: Never smoker Second hand tobacco smoke exposure: No Alcohol intake: current Drinks per week: 2 Substance use: never Substance use type: does not use Lack of Transportation: No Lack of Food: Never True Current Housing: I Have Housing Concerned About Future Housing: No Difficulty Paying Gas/Electric Bills: No Difficulty Paying for Meds: No Currently Unemployed: No Education: Bachelor's Degree Difficulty w/ Childcare or Family Care: No Living arrangements: with family Spiritual care concerns: No Meds Home Medications and Allergies Home Medications Medication Instructions Recorded Confirmed Type calcium polycarbophil 625 mg 1,250 mg PO DAILY 05/08/19 05/10/23 History tablet (FiberCon) cholecalciferol (vitamin D3) 25 1,000 unit PO HS 05/08/19 05/10/23 History mcg (1,000 unit) capsule meloxicam 7.5 mg tablet 7.5 mg PO DAILY 05/08/19 05/10/23 History metoprolol succinate 100 mg 50 mg PO DAILY 05/08/19 05/10/23 History capsule sprinkle, ext. release 24 hr multivitamin 1 tablet PO HS 05/08/19 05/10/23 History aspirin 81 mg tablet,delayed 81 mg PO HS 01/27/20 05/10/23 History release (Adult Aspirin Regimen) levothyroxine 112 mcg tablet 112 mcg PO QAM 04/18/20 05/10/23 History (Euthyrox) losartan 100 mg tablet 100 mg PO QAM 04/18/20 05/10/23 History rosuvastatin 10 mg tablet 20 mg PO DAILY 03/24/21 05/10/23 History letrozole 2.5 mg tablet 2.5 mg PO DAILY 03/06/22 05/10/23 History fluocinolone acetonide oil 0.01 % 3 drp EACH EAR DAILY #20 mL 07/27/22 05/10/23 Rx ear drops (DermOtic Oil) hydrochlorothiazide 25 mg tablet 25 mg PO DAILY 07/27/22 05/10/23 History calcium 600 mg capsule 600 mg PO DAILY 08/13/22 05/10/23 History Allergies Allergy/AdvReac Type Severity Reaction Status Date / Time poison myke extract Allergy Unknown Skin Verified 05/10/23 06:15 Reaction Exam Const: General: alert Orientation/consciousness: patient oriented x3 Resp: Auscultation: clear to auscultation bilaterally Cardio: Rhythm: regular rhythm GI: GI Palp: Yes Soft to palpation and No Tenderness to palpation present (GI) Neuro: General: patient oriented x3 Assessment and Plan Assessment and plan (1) Colon cancer screening: Code(s): Z12.11 - Encounter for screening for malignant neoplasm of colon Status: Acute Assessment and Plan: Colonoscopy with possible biopsy or polypectomy or cautery or injection of substances.
[2023-05-10 06:19] VITALS: BP 152/82; PULSE 91; RESP 18; TEMP 36.6; O2SAT 99
[2023-05-10] MEDS: LACTATED RINGERS 1,000 ML 150 ML IV CONT (06:28)
--- NOTE | 2023-05-10 07:24 | WPDANESEPPF ---
Anes - Initial Pre Proc Eval Procedure: Operation Date: 05/10/23 07:30 Proposed Procedures p Screening Colonoscopy - Nico Live MD Date/Time: 05/10/23 07:24 Surgeon: Nico Live MD Pre Op Diagnosis: neoplasm screening Patient Data Age: 62 Gender: F Height: 1.55 m Weight: 96.8 kg Last Vital Signs Temp 97.8 F 05/10/23 06:19 Pulse 91 05/10/23 06:19 Resp 18 05/10/23 06:19 BP 152/82 H 05/10/23 06:19 Pulse Ox 99 05/10/23 06:19 O2 Del Method Room Air 05/10/23 06:19 Allergies Allergy/AdvReac Type Severity Reaction Status Date / Time poison myke extract Allergy Unknown Skin Verified 05/10/23 06:15 Reaction Home Medications Medication Instructions Recorded Confirmed Type calcium polycarbophil 625 mg 1,250 mg PO DAILY 05/08/19 05/10/23 History tablet (FiberCon) cholecalciferol (vitamin D3) 25 1,000 unit PO HS 05/08/19 05/10/23 History mcg (1,000 unit) capsule meloxicam 7.5 mg tablet 7.5 mg PO DAILY 05/08/19 05/10/23 History metoprolol succinate 100 mg 50 mg PO DAILY 05/08/19 05/10/23 History capsule sprinkle, ext. release 24 hr multivitamin 1 tablet PO HS 05/08/19 05/10/23 History aspirin 81 mg tablet,delayed 81 mg PO HS 01/27/20 05/10/23 History release (Adult Aspirin Regimen) levothyroxine 112 mcg tablet 112 mcg PO QAM 04/18/20 05/10/23 History (Euthyrox) losartan 100 mg tablet 100 mg PO QAM 04/18/20 05/10/23 History rosuvastatin 10 mg tablet 20 mg PO DAILY 03/24/21 05/10/23 History letrozole 2.5 mg tablet 2.5 mg PO DAILY 03/06/22 05/10/23 History fluocinolone acetonide oil 0.01 % 3 drp EACH EAR DAILY #20 mL 07/27/22 05/10/23 Rx ear drops (DermOtic Oil) hydrochlorothiazide 25 mg tablet 25 mg PO DAILY 07/27/22 05/10/23 History calcium 600 mg capsule 600 mg PO DAILY 08/13/22 05/10/23 History Patient hx anesthesia problems: none Family hx anesthesia problems: none Results Review: All pre-operative results and documents have been reviewed as part of the pre-operative evaluation. [facility] Past Medical History Medical History Bleeding nose CAD (coronary artery disease) Hyperlipidemia Hypertension Hypothyroidism Osteoarthritis of both knees Surgical History Surgical History History of bladder surgery History of coronary artery stent placement 2019x1 History of hysterectomy History of thyroid surgery History of tubal ligation Status post left partial knee replacement Family History Family History Mother Family history of malignant neoplasm Father Family history of elevated blood lipids Mother Family history of diabetes mellitus in first degree relative Mother Cancer Son Asthma Depression Anxiety Social History Social History Social History: Caffeine- coffee daily Smoking status: Never smoker Second hand tobacco smoke exposure: No Alcohol intake: current Drinks per week: 2 Substance use: never Substance use type: does not use Lack of Transportation: No Lack of Food: Never True Current Housing: I Have Housing Concerned About Future Housing: No Difficulty Paying Gas/Electric Bills: No Difficulty Paying for Meds: No Currently Unemployed: No Education: Bachelor's Degree Difficulty w/ Childcare or Family Care: No Living arrangements: with family Spiritual care concerns: No Anes - Eval Final PreProcedure Day of Procedure 05/10/23 07:24 Patient weight: morbidly obese Heart: regular rate and rhythm Lungs: clear to auscultation Airway: Mallampati scale class II Neurological: alert and oriented Last oral intake: >/= 8 hours ASA classification: III Emergent: no Anesthetic plan: proceed Anesthesia type and monitoring: general GIVS and standard monitoring Results Review:
[2023-05-10 07:41] VITALS: BP 119/53; PULSE 71; RESP 25; O2SAT 96
[2023-05-10 07:51] VITALS: BP 124/67; PULSE 71; RESP 22; O2SAT 99
[2023-05-10 08:01] VITALS: BP 124/67; PULSE 69; RESP 20; O2SAT 99
[2023-05-10 08:21] VITALS: BP 126/80; PULSE 62; RESP 20; O2SAT 100
== END 2023-05-10 08:09 | disposition home or self-care (01) ==
PROVIDERS: PCP Physician Assistant; Visit Provider Internal Medicine Gastroenterology
PROC: 0DJD8ZZ Inspection of Lower Intestinal Tract, Via Natural or Artificial Opening Endoscopic (ICD-10-PCS; CPT 45378; principal; 2023-05-10 07:30)
DX: Z12.11 Encounter for screening for malignant neoplasm of colon (principal); K57.30 Diverticulosis of large intestine without perforation or abscess without bleeding; K64.8 Other hemorrhoids; Z85.3 Personal history of malignant neoplasm of breast; I25.10 Atherosclerotic heart disease of native coronary artery without angina pectoris; E78.5 Hyperlipidemia, unspecified; I10 Essential (primary) hypertension; E03.9 Hypothyroidism, unspecified; Z95.1 Presence of aortocoronary bypass graft; Z79.82 Long term (current) use of aspirin; E66.01 Morbid (severe) obesity due to excess calories; Z68.41 Body mass index [BMI] 40.0-44.9, adult
CPT/HCPCS: 45378; J2704; J7120

== ENCOUNTER 2023-08-20 16:31 | Outpatient (CLI) | payer OTHER, SELFPAY ==
--- NOTE | ~2023-08-20 | XR_ITS ---
XR knee RT min 4V DATE: 08/20/2023 16:59 INDICATION: Right knee primary osteoarthritis TECHNIQUE: [place] and standing AP, PA and lateral views COMPARISON: 03/15/2023 right knee FINDINGS: There is severe loss of height at the medial compartment joint, with mild periarticular spu rring. Small suprapatellar knee joint effusion is suggested. No fracture, dislocation, periosteal reaction or bone destruction, chondrocalcinosis or radiopaque in tra-articular loose body is noted. IMPRESSION: Severe loss of medial compartment joint space, mild particular spurring, consistent with severe medial compartment osteoarthritis. Associated mild varus deformity Small knee joint effusion is suggested Reviewed, dictated and finalized at location L. IMPRESSION: Severe loss of medial compartment joint space, mild particular spur ring, consistent with severe medial compartment osteoarthritis. Associated mild varus deformity Small knee joint effusion is suggested
== END 2023-08-20 16:32 | disposition home or self-care (01) ==
LOC: ANHIMG 16:32
PROVIDERS: PCP Physician Assistant; Visit Provider Orthopaedic Surgery
DX: M17.11 Unilateral primary osteoarthritis, right knee (principal)
CPT/HCPCS: 73564

== ENCOUNTER 2023-11-16 07:16 | Outpatient (CLI) | payer OTHER, SELFPAY ==
[2023-11-16 08:41] LABS: Basophils Absolute Auto 0.1 K/mm3 (0.0-0.1); Basophils Percent Auto 1.5 % (0.2-1.2); Eosinophils Absolute Auto 0.1 K/mm3 (0-0.3); Eosinophils Percent Auto 2.1 % (0-4.4); Hemoglobin 14.4 g/dL (12.0-15.0); Immature Granulocyte Absolute 0.02 K/mm3 (0.00-0.031); Immature Granulocyte Percent A 0.4 % (0-0.5); Lymphocytes Absolute Auto 1.31 K/mm3 (0.9-3.2); Lymphocytes Percent Auto 24.5 % (18.3-44.2); Mean Corpuscular HGB Conc 33.5 g/dl (32-36); Mean Corpuscular Hemoglobin 28.8 pg (26-34); Mean Platelet Volume 9.6 fl (7.4-10.4); Monocytes Absolute Auto 0.4 K/mm3 (0.1-0.6); Monocytes Percent Auto 8.2 % (2.6-8.5); Neutrophils Absolute Auto 3.4 K/mm3 (1.3-6.7); Neutrophils Percent Auto 63.3 % (45.5-73.1); Platelet Count Result 259 k/mm3 (150-375); Red Cell Distribution Width 13.2 % (11.5-14.5); White Blood Count 5.3 K/mm3 (4.5-10.0)
[2023-11-16 08:53] LABS: Alanine Aminotransferase 30 U/L (6-35); Albumin Level 4.3 g/dL (3.5-5.1); Alkaline Phosphatase 69 U/L (38-126); Anion Gap 10 mmol/L (4-12); Aspartate Amino Transferase 26 U/L (14-36); Bilirubin,Total 0.6 mg/dL (0.2-1.3); Blood Urea Nitrogen 15 mg/dL (7-17); Calcium 9.4 mg/dL (8.4-10.2); Carbon Dioxide 24 mmol/L (22-30); Chloride 107 mmol/L (98-107); Cholesterol 135 mg/dL (0-200); Estimated Glomerular Filt Rate > 60; Glucose 133 mg/dL (65-110); HDL Direct 39 mg/dL; Potassium 3.6 mmol/L (3.4-5.0); Sodium 141 mmol/L (137-145); Triglycerides 115 mg/dL (<150)
[2023-11-16 09:04] LABS: LDL Cholesterol Direct 84 mg/dL
[2023-11-16 09:21] LABS: Free T4 Free Thyroxine 1.07 ng/mL (0.78-2.19); Vitamin D 25 Hydroxy 73.3 ng/mL
[2023-11-16 09:31] LABS: Hemoglobin A1C 5.8 % (<5.7)
[2023-12-05 15:33] LABS: Free Insulin 47.7 uIU/mL (1.5-14.9)
== END 2023-11-16 07:17 | disposition home or self-care (01) ==
LOC: ANHLAB 07:24
PROVIDERS: PCP Physician Assistant; Visit Provider Physician Assistant
DX: E03.9 Hypothyroidism, unspecified (principal); E78.5 Hyperlipidemia, unspecified; Z79.899 Other long term (current) drug therapy; Z13.1 Encounter for screening for diabetes mellitus; Z68.41 Body mass index [BMI] 40.0-44.9, adult
CPT/HCPCS: 36415; 80053; 80061; 80307; 82306; 83036; 83527; 84439; 85025

== ENCOUNTER 2023-12-18 13:21 | Emergency (ER) | payer OTHER, SELFPAY ==
[2023-12-18 13:34] VITALS: BP 151/68; PULSE 95; RESP 16; TEMP 38.1; O2SAT 99
--- NOTE | 2023-12-18 13:52 | ED.URI ---
HPI - URI/Sore Throat General Chief Complaint: Upper Respiratory Infection Stated Complaint: sore throat,temp,achy Time Seen by Provider: 12/18/23 13:52 Source: patient Mode of arrival: ambulatory Limitations: no limitations History of Present Illness HPI Narrative: 63-year-old female Presents with complaint of sore throat, headache, fatigue, fever for 2 days. taking Tylenol to treat pain. States she slept all day yesterday due to extreme fatigue. No chest pain, shortness breath, cough. Did home COVID test that was negative. All systems reviewed and negative except as noted above. Related Data Home Medications Medication Instructions Recorded Confirmed calcium polycarbophil 625 mg 1,250 mg PO DAILY 05/08/19 12/18/23 tablet (FiberCon) cholecalciferol (vitamin D3) 25 1,000 unit PO HS 05/08/19 12/18/23 mcg (1,000 unit) capsule meloxicam 7.5 mg tablet 7.5 mg PO DAILY 05/08/19 12/18/23 metoprolol succinate 100 mg 50 mg PO DAILY 05/08/19 12/18/23 capsule sprinkle, ext. release 24 hr multivitamin 1 tablet PO HS 05/08/19 12/18/23 aspirin 81 mg tablet,delayed 81 mg PO HS 01/27/20 12/18/23 release (Adult Aspirin Regimen) levothyroxine 112 mcg tablet 112 mcg PO QAM 04/18/20 12/18/23 (Euthyrox) losartan 100 mg tablet 100 mg PO QAM 04/18/20 12/18/23 rosuvastatin 10 mg tablet 20 mg PO DAILY 03/24/21 12/18/23 letrozole 2.5 mg tablet 2.5 mg PO DAILY 03/06/22 12/18/23 hydrochlorothiazide 25 mg tablet 25 mg PO DAILY 07/27/22 12/18/23 calcium 600 mg capsule 600 mg PO DAILY 08/13/22 12/18/23 diclofenac potassium 50 mg tablet 50 mg PO DAILY 10/24/23 12/18/23 Allergies Allergy/AdvReac Type Severity Reaction Status Date / Time poison myke extract Allergy Unknown Skin Verified 12/18/23 13:38 Reaction Review of Systems Review of Systems: CONSTITUTIONAL: reports fever, fatigue, chills EYES: Denies visual changes, redness, or discharge. ENT: Denies rhinorrhea, congestion . Reports sore throat. Denies otalgia. CARDIOVASCULAR: Denies chest pain, palpitations, or edema. RESPIRATORY: Denies cough or dyspnea. GASTROINTESTINAL: Denies abdominal pain, nausea, vomiting, or diarrhea. GENITOURINARY: Denies dysuria or hematuria. SKIN: Denies rash or itching. MUSCULOSKELETAL: Denies back pain, joint pain, or myalgia. NEUROLOGIC: Denies headache, numbness, or weakness. PSYCHIATRIC: Denies anxiety or depression. All other systems reviewed are negative, except as documented in HPI. [facility] Past Medical History Medical History Bleeding nose CAD (coronary artery disease) Hyperlipidemia Hypertension Hypothyroidism Osteoarthritis of both knees Surgical History Surgical History History of bladder surgery History of coronary artery stent placement 2019x1 History of hysterectomy History of thyroid surgery History of tubal ligation Status post left partial knee replacement Family History Family History Mother Family history of malignant neoplasm Father Family history of elevated blood lipids Mother Family history of diabetes mellitus in first degree relative Mother Cancer Son Asthma Depression Anxiety Social History Social History Social History: Caffeine- coffee daily Smoking status: Never smoker Second hand tobacco smoke exposure: No Alcohol intake: current Drinks per week: 2 Substance use: never Substance use type: does not use Do You Feel Safe in your Home?: Yes Lack of Transportation: No Lack of Food: Never True Current Housing: I Have Housing Concerned About Future Housing: No Difficulty Paying Gas/Electric Bills: No Difficulty Paying for Meds: No Currently Unemployed: No Education: Bachelor's Degree Difficulty w/ Childcare or Family
[2023-12-18 14:11] LABS: EDINFLUASCREEN Negative; EDINFLUBSCREEN Negative; EDSTREPNEGPOS1 Presumptive Negative
== END 2023-12-18 14:30 | disposition home or self-care (01) ==
PROVIDERS: Emergency Provider Nurse Practitioner Family; PCP Physician Assistant
DX: J02.9 Acute pharyngitis, unspecified (principal); H66.93 Otitis media, unspecified, bilateral; Z20.822 Contact with and (suspected) exposure to COVID-19; I25.10 Atherosclerotic heart disease of native coronary artery without angina pectoris; E78.5 Hyperlipidemia, unspecified; I10 Essential (primary) hypertension; E03.9 Hypothyroidism, unspecified; M17.0 Bilateral primary osteoarthritis of knee; Z95.5 Presence of coronary angioplasty implant and graft; Z96.652 Presence of left artificial knee joint
CPT/HCPCS: 87081; 87426; 87804; 87880; 99213; G0463

== ENCOUNTER 2024-03-02 13:19 | Outpatient (CLI) | payer OTHER, SELFPAY ==
[2024-03-02 14:07] LABS: Alanine Aminotransferase 33 U/L (6-35); Albumin Level 4.6 g/dL (3.5-5.1); Alkaline Phosphatase 86 U/L (38-126); Aspartate Amino Transferase 40 U/L (14-36); Bilirubin,Total 0.5 mg/dL (0.2-1.3)
[2024-03-02 14:28] LABS: Free T4 Free Thyroxine 1.24 ng/mL (0.78-2.19)
[2024-03-02 14:38] LABS: Thyroid Stimulating Hormone 0.562 uIU/mL (0.465-4.680)
[2024-03-05 06:38] LABS: CA 15-3 9 U/mL (<32)
== END 2024-03-02 13:20 | disposition home or self-care (01) ==
PROVIDERS: PCP Physician Assistant; Visit Provider Internal Medicine Medical Oncology
DX: C50.412 Malignant neoplasm of upper-outer quadrant of left female breast (principal); Z17.0 Estrogen receptor positive status [ER+]; E03.9 Hypothyroidism, unspecified
CPT/HCPCS: 36415; 80076; 84439; 84443; 86300

== ENCOUNTER 2024-03-24 10:00 | Emergency (ER) | payer OTHER, SELFPAY ==
[2024-03-24 10:06] VITALS: BP 149/68; PULSE 79; RESP 16; TEMP 36.5; O2SAT 98
--- NOTE | 2024-03-24 10:16 | ED.ABDPAIN ---
HPI - Abdominal Pain General Chief Complaint: Abdominal Pain Stated Complaint: abd pain Time Seen by Provider: 03/24/24 10:04 History of Present Illness HPI narrative: Patient started taking some semaglutide injections; after the 1st dose she felt unwell, then after the 2nd increased dose now feels very unwell with nausea, vomiting, abdominal pain and distension. Related Data Home Medications Medication Instructions Recorded Confirmed calcium polycarbophil 625 mg 1,250 mg PO DAILY 05/08/19 01/29/24 tablet (FiberCon) cholecalciferol (vitamin D3) 25 1,000 unit PO HS 05/08/19 01/29/24 mcg (1,000 unit) capsule meloxicam 7.5 mg tablet 7.5 mg PO DAILY 05/08/19 01/29/24 metoprolol succinate 100 mg 50 mg PO DAILY 05/08/19 01/29/24 capsule sprinkle, ext. release 24 hr multivitamin 1 tablet PO HS 05/08/19 01/29/24 aspirin 81 mg tablet,delayed 81 mg PO HS 01/27/20 01/29/24 release (Adult Aspirin Regimen) levothyroxine 112 mcg tablet 112 mcg PO QAM 04/18/20 01/29/24 (Euthyrox) losartan 100 mg tablet 100 mg PO QAM 04/18/20 01/29/24 rosuvastatin 10 mg tablet 20 mg PO DAILY 03/24/21 01/29/24 letrozole 2.5 mg tablet 2.5 mg PO DAILY 03/06/22 01/29/24 hydrochlorothiazide 25 mg tablet 25 mg PO DAILY 07/27/22 01/29/24 calcium 600 mg capsule 600 mg PO DAILY 08/13/22 01/29/24 diclofenac potassium 50 mg tablet 50 mg PO DAILY 10/24/23 01/29/24 Allergies Allergy/AdvReac Type Severity Reaction Status Date / Time poison myke extract Allergy Unknown Skin Verified 03/24/24 10:06 Reaction Review of Systems Review of Systems: All systems reviewed & are unremarkable except as noted in HPI and below PMFSH Past Medical History Medical History Bleeding nose CAD (coronary artery disease) Hyperlipidemia Hypertension Hypothyroidism Osteoarthritis of both knees Surgical History Surgical History History of bladder surgery History of coronary artery stent placement 2019x1 History of hysterectomy History of thyroid surgery History of tubal ligation Status post left partial knee replacement Family History Family History Mother Family history of malignant neoplasm Father Family history of elevated blood lipids Mother Family history of diabetes mellitus in first degree relative Mother Cancer Son Asthma Depression Anxiety Social History Social History Social History: Caffeine- coffee daily Smoking status: Never smoker Second hand tobacco smoke exposure: No Alcohol intake: current Drinks per week: 2 Substance use: never Substance use type: does not use Do You Feel Safe in your Home?: Yes Lack of Transportation: No Lack of Food: Never True Current Housing: I Have Housing Concerned About Future Housing: No Difficulty Paying Gas/Electric Bills: No Difficulty Paying for Meds: No Currently Unemployed: No Education: Bachelor's Degree Difficulty w/ Childcare or Family Care: No Living arrangements: with family Spiritual care concerns: No Exam Narrative: EXAMINATION OF ORGAN SYSTEMS/BODY AREAS: Constitutional: Vital signs per nursing GENERAL: Appears slightly uncomfortable HEAD: Normal with no signs of head trauma. EYES: EOMI, conjunctiva normal ENT: Hearing grossly intact LUNGS: Nonlabored breathing. HEART: [Regular rate and rhythm] ABD: [Soft], no focal tenderness to palpation EXT: Normal range of motion SKIN: [No rashes or lesions.] NEURO: [Alert and oriented x 3. No gross focal sensory or strength deficits.] PSYCH: Normal affect Course Vital Signs Vital signs: Vital Signs Temperature 97.7 F 03/24/24 10:06 Pulse Rate 79 03/24/24 10:06 Respiratory Rate 16 03/24/24 10:06 Blood Pressure 149/68 H 03/24/24 10:06
[2024-03-24 10:55] VITALS: BP 140/63; PULSE 78; RESP 15; O2SAT 96
[2024-03-24] MEDS: ONDANSETRON INJ 4 MG/2 ML VIAL IV PUSH (10:59)
[2024-03-24 11:00] LABS: Basophils Percent Auto 0.5 % (0.2-1.2); Eosinophils Absolute Auto 0.1 K/mm3 (0-0.3); Eosinophils Percent Auto 0.7 % (0-4.4); Hematocrit 47.8 % (37.0-47.0); Immature Granulocyte Absolute 0.03 K/mm3 (0.00-0.031); Immature Granulocyte Percent A 0.4 % (0-0.5); Lymphocytes Absolute Auto 1.32 K/mm3 (0.9-3.2); Lymphocytes Percent Auto 15.5 % (18.3-44.2); Mean Corpuscular HGB Conc 33.5 g/dl (32-36); Mean Corpuscular Volume 86.8 fl (80-100); Mean Platelet Volume 9.2 fl (7.4-10.4); Monocytes Absolute Auto 0.6 K/mm3 (0.1-0.6); Monocytes Percent Auto 6.9 % (2.6-8.5); Neutrophils Absolute Auto 6.5 K/mm3 (1.3-6.7); Platelet Count Result 298 k/mm3 (150-375); Red Blood Count 5.51 M/mm3 (4.2-5.4); Red Cell Distribution Width 13.4 % (11.5-14.5); White Blood Count 8.5 K/mm3 (4.5-10.0)
[2024-03-24] MEDS: FAMOTIDINE 20 MG/2 ML VIAL IV PUSH (11:02)
[2024-03-24] MEDS: MAG HYDROX/AL HYDROX/SIMETH 30 ML UDC PO (11:05)
[2024-03-24 11:13] LABS: Alanine Aminotransferase 44 U/L (6-35); Albumin Level 4.8 g/dL (3.5-5.1); Alkaline Phosphatase 77 U/L (38-126); Anion Gap 9 mmol/L (4-12); Aspartate Amino Transferase 33 U/L (14-36); Blood Urea Nitrogen 14 mg/dL (7-17); Calcium 10.2 mg/dL (8.4-10.2); Carbon Dioxide 31 mmol/L (22-30); Chloride 100 mmol/L (98-107); Estimated CRCL calculation 69 ml/min; Estimated Glomerular Filt Rate > 60; Glucose 114 mg/dL (65-110); Lipase 68 U/L (23-300); Potassium 3.9 mmol/L (3.4-5.0); Sodium 140 mmol/L (137-145)
[2024-03-24 12:10] VITALS: BP 125/51; PULSE 75; RESP 15; O2SAT 98
[2024-03-24] MEDS: DICYCLOMINE HCL 10 MG CAPSULE 20 MG PO (12:16)
== END 2024-03-24 12:38 | disposition home or self-care (01) ==
PROVIDERS: Emergency Provider Emergency Medicine; PCP Physician Assistant
DX: R11.2 Nausea with vomiting, unspecified (principal); R10.9 Unspecified abdominal pain; T50.995A Adverse effect of other drugs, medicaments and biological substances, initial encounter; I25.10 Atherosclerotic heart disease of native coronary artery without angina pectoris; I10 Essential (primary) hypertension; E78.5 Hyperlipidemia, unspecified; E03.9 Hypothyroidism, unspecified; M17.0 Bilateral primary osteoarthritis of knee; Z95.5 Presence of coronary angioplasty implant and graft; Z96.652 Presence of left artificial knee joint; Z90.710 Acquired absence of both cervix and uterus; Z79.82 Long term (current) use of aspirin; Z79.899 Other long term (current) drug therapy
CPT/HCPCS: 36415; 80053; 83690; 85025; 96374; 96375; 99284; A9270; J2405

== ENCOUNTER 2024-06-16 07:11 | Outpatient (CLI) | payer OTHER, SELFPAY ==
[2024-06-16 08:09] LABS: Basophils Absolute Auto 0.1 K/mm3 (0.0-0.1); Basophils Percent Auto 1.1 % (0.2-1.2); Eosinophils Absolute Auto 0.1 K/mm3 (0-0.3); Eosinophils Percent Auto 2.5 % (0-4.4); Hematocrit 41.7 % (37.0-47.0); Hemoglobin 13.8 g/dL (12.0-15.0); Immature Granulocyte Absolute 0.03 K/mm3 (0.00-0.031); Immature Granulocyte Percent A 0.5 % (0-0.5); Lymphocytes Absolute Auto 1.45 K/mm3 (0.9-3.2); Lymphocytes Percent Auto 26.2 % (18.3-44.2); Mean Corpuscular HGB Conc 33.1 g/dl (32-36); Mean Corpuscular Hemoglobin 29.1 pg (26-34); Mean Corpuscular Volume 87.8 fl (80-100); Mean Platelet Volume 9.6 fl (7.4-10.4); Monocytes Absolute Auto 0.4 K/mm3 (0.1-0.6); Monocytes Percent Auto 7.6 % (2.6-8.5); Neutrophils Absolute Auto 3.4 K/mm3 (1.3-6.7); Neutrophils Percent Auto 62.1 % (45.5-73.1); Platelet Count Result 225 k/mm3 (150-375); Red Blood Count 4.75 M/mm3 (4.2-5.4); Red Cell Distribution Width 13.2 % (11.5-14.5); White Blood Count 5.5 K/mm3 (4.5-10.0)
[2024-06-16 09:18] LABS: Free T4 Free Thyroxine 0.83 ng/dL (0.78-2.19)
[2024-06-16 15:08] LABS: Alanine Aminotransferase 29 U/L (6-35); Alkaline Phosphatase 78 U/L (38-126); Anion Gap 6 mmol/L (4-12); Aspartate Amino Transferase 26 U/L (14-36); Bilirubin,Total 0.6 mg/dL (0.2-1.3); Blood Urea Nitrogen 17 mg/dL (7-17); Calcium 9.2 mg/dL (8.4-10.2); Carbon Dioxide 29 mmol/L (22-30); Chloride 104 mmol/L (98-107); Cholesterol 137 mg/dL (0-200); Estimated Glomerular Filt Rate > 60; Glucose 110 mg/dL (65-110); HDL Direct 41 mg/dL; Sodium 139 mmol/L (137-145); Triglycerides 98 mg/dL (<150)
[2024-06-16 15:18] LABS: LDL Cholesterol Direct 83 mg/dL
[2024-06-16 15:53] LABS: Thyroid Stimulating Hormone 0.205 uIU/mL (0.465-4.680)
[2024-06-16 16:46] LABS: Folic Acid > 20.0 ng/mL (2.76->20)
[2024-06-16 19:09] LABS: Hemoglobin A1C 6.1 % (<5.7)
[2024-06-17 14:49] LABS: Insulin Level Total 31.2 uIU/mL
== END 2024-06-16 07:12 | disposition home or self-care (01) ==
LOC: ANHLAB 07:13
PROVIDERS: PCP Physician Assistant; Visit Provider Physician Assistant
DX: R73.03 Prediabetes (principal); E03.9 Hypothyroidism, unspecified; E78.5 Hyperlipidemia, unspecified; Z68.41 Body mass index [BMI] 40.0-44.9, adult; Z79.899 Other long term (current) drug therapy
CPT/HCPCS: 36415; 80053; 80061; 82607; 82746; 83036; 83525; 84439; 84443; 85025

== ENCOUNTER 2024-09-25 07:23 | Outpatient (CLI) | payer OTHER, SELFPAY ==
--- NOTE | ~2024-09-25 | XR_ITS ---
Clinical Indication: Cough PA and lateral views of the chest: Comparison: None Findings: Several calcified granulomas are present. The lungs are otherwise clear, without evidence o f focal consolidation or pleural effusion. Cardiomediastinal silhouette is within normal limits. Bon es and soft tissues are unremarkable. Impression: No acute abnormality. Reviewed, dictated and finalized at location . Impression: No acute abnormality.
--- OUTSIDE RECORDS SUMMARY | 2024-09-25 07:32 | XMS_ITS | Continuity of Care Document ---
Author Organization [facility] Address [address] [place] [address] Phone Care Team Providers Care Benefits Specialist Name Role Phone Curry OD, [place] Unavailable Unavailable Advance Directives Directive Yes / No Effective Date File Name No Information Encounters Encounter Description Practice Location Reason(s) For Visit Diagnoses Date Provider Providers Copied on Encounter [facility], [address], [place], [place], [id number], [place] tel:[phone] [facility] No Information 0 [phone] 1 Curry OD [place]. [address] , [address], [place], [address], [place]. tel:[phone] Family History Family Member Type Diagnosis Age At Onset No Information Payers Payer name Insurance type Covered green party ID Authoriza tion(s) No Information Social History Type Description Quantity Date Captured Comments Sex Female Smoking Status No Information Chief Complaint And Reason For Visit No Information Reason For Referral Reason For Referral No Information History Of Present Illness Encounter Date Complaint History Of Prese nt Illness No Information Functional Status Date Functional Assessmen t No Information Instructions Date Instruction Additional Infor mation No Information Assessments Type Assessment Date No Information Patient Care Teams Name Effective Dates (start - stop) Status Members No Information
--- OUTSIDE RECORDS SUMMARY | 2024-09-25 07:32 | XMS_ITS | Data Portability ---
Author Organization [facility] [place], Main Office Address [address] [place] [address] Assessment No assessment recorded. Plan of Treatment Reminders Order Date Submit Date Provider Last Modified By Organization Details Last Modified Time Details Appointments None recorded . Lab HbA1c (hemoglo bin A1c), blood 023 01/01/20 [facility] (Lab), [address] [place] [address], [phone], 3 09:13:09 CMP, serum or plasma 023 01/01/20 23 [facility] (Lab), [address] [place] [address], [phone], 3 16:08:23 CBC w/ auto diff 023 01/01/[address] (Lab), [address] [place] [address], [phone], 3 17:50:49 lipid panel, serum 023 01/01/[address] (Lab), [facility] [facility] [address] [place] [address], [address], 3 17:50:38 T3, free, serum or plasma 023 01/01/20 23 [facility] (Lab), [facility] [address], [address], 3 08:58:12 T4, free, serum 023 01/01/20 23 [email or web address] [facility] (Lab), [address] [facility] [address], [place], [address], 3 09:15:35 TSH, serum or plasma 023 01/01/20 23 [email or web address] [facility] (Lab), [address] [facility] [address], [place], [address], 4 09:50:33 Referral None recorded . Procedures None recorded . Surgeries None recorded . Imaging None recorded . Medication Orders None recorded . Patient TargetsNo targets recorded. Patient InstructionsNo instructions recorded. Reason for Referral None Reported. Results Created Date Observation Date Name Description Value Unit Range Abnormal Flag Note LastModifiedBy Organization Detail LastModifiedTime 05/10/20 21 05/09/2021 MAMMO , scree maría, digit al, bilat eral No observ ation record ed. [email or web address]. [id number] Not Available 08/01/2022 01:21:13 06/23/19 22 06/23/2021 MAMMO , diagn ostic , digit al, unila teral No observ ation record ed. MIGRATION. [facility] (Mammography) [address], [place], [address], 08/01/2022 01:21:13 08/30/19 22 08/02/2021 stere otact ic breas t biops y (PROC ) No observ ation record ed. MIGRATION. Amanda Jaramillo [address], [place], [address], 08/01/2022 01:21:13 09/06/19 22 08/30/2021 imagi ng/di agnos tic resul t No observ ation record ed. MIGRATION. Not Available 08/01/2022 01:21:13 05/10/20 23 05/10/2023 colon oscop y scree maría (PROC ) No observ ation record ed. [email or web address] Not Available 2023 10:16:18 06/13/19 24 03/15/2023 XR, knee No observ ation record ed. [email or web address] Not Available 06/13 15:47:02 Result Notes None recorded. Problems Name Problem SNOMED Code Status Onset Date Resolution Date Notes Provider Name and Address Organization Details Recorded Time Benign hypertension 01708548 Active Not Available [facility] 3 01:12:04 Osteoarthriti s of knee 491845680 Active Not Available [facility] 3 01:12:04 Malignant tumor of breast 696177478 Active 2021 Not Available [facility] 3 01:12:04 Hypothyroidis m 41260751 Active Not Available [facility] 3 01:12:04 Obesity 328325288 Active Not Available [facility] 3 01:12:04 Coronary atheroscleros is 787634733 Active 2021 Not Available [facility] 3 01:12:04 Coronary arteriosclero sis 48265346 Active 2019 Not Available [facility] 3 01:12:04 Hyperlipidemi a 28530787 Active 2021 Not Available [facility] 3 01:12:05 Otitis media 24180356 Active 2021 Not Available [facility] 3 01:12:05 Pain in limb 88380196 Active Not Available [facility] 3 01:12:05 Impaired glucose tolerance 0828990 Active 2022 Not Available [facility] 3 01:12:05 Problem Notes None recorded. Procedures Surgical History Date Name Laterality Status Provider Name and Address Organization Details Recorded Time 05/17/20 20 Knee Replacement completed Not Available [facility] 06/2022 01:05:31 05/18/20 16 Date of Last Colonoscopy completed Not Available [facility] 08/01/2022 01:05:27 06/03/19 13 Thyroid Surgery completed Not Available [facility] 0306/2022 01:05:31 06/03/19 10 Hysterectomy completed Not Available [facility] 023 01:05:31 06/03/18 95 Tubal Ligation completed Not Available [facility] 08/01 01:05:31 Stent completed Not Available [facility] 06/2022 01:05:31 Breast Surgery completed Not Available [facility] 08/01/2022 01:05:31 Imaging Results Imaging Date Name Status LastModified by Organization Details LastModified Time 08/30/2021 imaging/diagnost ic result completed [id number] Information not available 08/01/2022 01:21:13 08/02/2021 stereotactic breast biopsy (PROC) completed [id number], [place], [address], 08/01/2022 01:21:13 05/09/2021 MAMMO, screening, digital, bilateral completed [id number] Information not available 08/01/2022 01:21:13 06/23/2021 MAMMO, diagnostic, digital, unilateral completed [id number] [facility] (Mammography) [address], [place], [address], 08/01/2022 01:21:13 05/10/2023 colonoscopy screening (PROC) completed [email or web address] Information not available 06/20/2023 10:16:18 03/15/2023 XR, knee completed [email or web address] Information no t available 06/13/2023 15:47:02 Procedure Notes None recorded. Medical Equipment None Reported. Allergies No known drug allergies Medications Name Sig Start Date Stop Date Status Note LastModified by Organization Details LastModified Time amoxicill in 500 mg capsule TAKE FOUR CAPSULES BY MOUTH ONE HOUR BEFORE APPOINTM ENT 07/02 completed Not Available Not Available Not Available doxycycli ne hyclate 100 mg capsule TAKE 1 CAPSULE BY MOUTH TWICE DAILY FOR 10 DAYS 12/26 completed Not Available Not Available Not Available atorvasta tin 20 mg tablet TAKE 1 TABLET BY MOUTH ONCE DAILY AT NIGHT. 09/20 completed Not Available Not Available Not Available azithromy marleni 250 mg tablet 10/06 completed Not Available Not Available Not Available hydrocodo ne 5 mg-acetam inophen 325 mg tablet 06/29 completed Not Available Not Available Not Available metoprolo l succinate ER 100 mg tablet,ex tended release 24 hr Take 1 tablet by mouth once daily active Not Available Not Available No t Available Nifedical XL 30 mg tablet,ex tended release Take 1 tablet every day by oral route. 2015 active Not Available Not Available Not Avai lable nifedipin e ER 30 mg tablet,ex tended release Take 1 tablet every day by oral route. 08/08 completed Not Available Not Available Not Available Euthyrox 100 mcg tablet TAKE 1 TABLET BY MOUTH ONCE DAILY FOR 30 DAYS active Not Available Not Available No t Available cefadroxi l 500 mg capsule 07/02 completed Not Available Not Available Not Available meloxicam 7.5 mg tablet TAKE 1 TABLET BY MOUTH ONCE DAILY NEEDED active Not Available Not Available No t Available losartan 100 mg-hydroc hlorothia zide 25 mg tablet Take 1 tablet by mouth every day 02/24 completed Not Available Not Available Not Available oxycodone -acetamin ophen 5 mg-325 mg tablet 08/08 completed Not Available Not Available Not Available amoxicill in 875 mg tablet TAKE 1 TABLET BY MOUTH EVERY 12 HOURS 12/26 completed Not Available Not Available Not Available hydrocort isone-jyoti tic acid 1 %-2 % ear drops INSTILL 2 DROPS INTO LEFT EAR(S) BY OTIC ROUTE 4 TIMES PER DAY 02/08 completed takes prn when onset of earache Not Available Not Available Not Available Topicort 0.25 % topical cream APPLY A THIN LAYER TO THE leg area BY TOPICAL ROUTE 2 TIMES PER DAY ; RUB IN GENTLY AND COMPLETE LY 04/28 completed Not Available Not Available Not Available levothyro xine 50 mcg tablet active Not Available Not Available Not Available cephalexi n 500 mg capsule TK ONE C PO Q 8 H UNTIL GONE 08/08 completed Not Available Not Available Not Available nitroglyc charo 0.4 mg sublingua l tablet 06/29 completed Not Available Not Available Not Available diclofena c sodium 75 mg tablet,de layed release TK 1 T PO BID active Not Available Not Available No t Available hydrochlo rothiazid e 25 mg tablet Take 1 tablet by mouth once daily 2022 active Not Available Not Available Not Avai lable letrozole 2.5 mg tablet TAKE 1 TABLET BY MOUTH ONCE DAILY active Not Available Not Available No t Available losartan 100 mg tablet Take 1 tablet by mouth once daily 2022 active Not Available Not Available Not Avai lable diazepam 5 mg tablet active Not Available Not Available Not Available levothyro xine 112 mcg tablet TAKE 1 TABLET BY MOUTH ONCE DAILY IN THE MORNING 2022 active Not Available Not Available Not Avai lable amoxicill in 875 mg-potass ium clavulana te 125 mg tablet Take 1 tablet every 12 hours by oral route. 06/29 completed Not Available Not Available Not Available amoxicill in 500 mg-potass ium clavulana te 125 mg tablet active Not Available Not Available Not Available clindamyc in phosphate 1 % topical solution APPLY 2 DROPS DAILY TO GREAT TOE active Not Available Not Available No t Available Vitamin D3 25 mcg (1,000 unit) capsule Take 1 capsule every day by oral route. 2015 active Not Available Not Available Not Avai lable Ciprodex 0.3 %-0.1 % ear drops,divya pension 01/28 completed Not Available Not Available Not Available rosuvasta tin 10 mg tablet TAKE 1 TABLET BY MOUTH ONCE DAILY active Not Available Not Available No t Available rosuvasta tin 20 mg tablet active Not Available Not Available Not Available nitrofura ntoin monohydra te/macroc rystals 100 mg capsule 02/08 completed Not Available Not Available Not Available calcium active Not Available Not Avail able Not Available fiber 2021 active Not Available Not Available Not Avai lable multivita min 2015 active Not Available Not Available Not Avai lable fluocinol one acetonide oil 0.01 % ear drops INSTILL 3 DROPS INTO EACH EAR DAILY active Not Available Not Available No t Available diclofena c 1 % topical gel active Not Available Not Available Not Available levothyro xine 100 mcg capsule Take 1 capsule every day by oral route. 02/17 completed Not Available Not Available Not Available Brilinta 90 mg tablet TAKE 1 TABLET BY MOUTH TWICE DAILY active Not Available Not Available No t Available Monovisc 88 mg/4 mL intra-art icular syringe 01/28 completed Not Available Not Available Not Available glucosami ne 125 mg-chondr oitn 100 mg-cartil g 40 mg-colagn 10 mg tablet Take 1 tablet twice a day by oral route. 02/08 completed Not Available Not Available Not Available Ozempic 0.25 mg or 0.5 mg (2 mg/1.5 mL) subcutane ous pen injector Inject by subcutan eous route for 28 days. active Not Available Not Available No t Available Vitals Date Recorded Body mass index (BMI) Body height Oxygen saturation Oxygen saturation in Arterial blood by Pulse oximetry Heart rate Respiratory rate Body temperature Body weight Systolic blood pressure Diastolic blood pressure Systolic blood pressure Diastolic blood pressure Provider Name and Address Organization Details Last Updated DateTime 1 41.2 kg/m2 154.94 cm 98 % 98 % 79 /min 16 /min 98 [degF] 42836.1 4 g 142 mm[Hg] 84 mm[Hg] 130 mm[Hg] 82 mm[Hg] Not Available [facility] 3 01:08:38 Date Recorded Body mass index (BMI) Body height Oxygen saturation Oxygen saturation in Arterial blood by Pulse oximetry Heart rate Body temperature Body weight Systolic blood pressure Diastolic blood pressure Provider Name and Address Organization Details Last Updated DateTime 1 41.3 kg/m2 154.94 cm 97 % 97 % 87 /min 97.3 [degF] 21079.2 9 g 130 mm[Hg] 80 mm[Hg] Not Available [facility] 3 01:08:38 Date Recorded Body mass index (BMI) Body height Oxygen saturation Oxygen saturation in Arterial blood by Pulse oximetry Heart rate Respiratory rate Body temperature Body weight Systolic blood pressure Diastolic blood pressure Provider Name and Address Organization Details Last Updated DateTime 2 42.6 kg/m2 154.94 cm 98 % 98 % 71 /min 16 /min 97.5 [degF] 114656 g 138 mm[Hg] 82 mm[Hg] Not Available [facility] 3 01:08:38 Date Recorded Body mass index (BMI) Body height Oxygen saturation Oxygen saturation in Arterial blood by Pulse oximetry Heart rate Respiratory rate Body temperature Body weight Systolic blood pressure Diastolic blood pressure Provider Name and Address Organization Details Last Updated DateTime 3 41.6 kg/m2 154.94 cm 98 % 98 % 72 /min 16 /min 96.4 [degF] 35690.3 2 g 122 mm[Hg] 78 mm[Hg] Not Available [facility] 3 01:08:38 Date Recorded Body height Body temperature Body mass index (BMI) Body weight Respiratory rate Oxygen saturation Oxygen saturation in Arterial blood by Pulse oximetry Heart rate Systolic blood pressure Diastolic blood pressure Provider Name and Address Organization Details Last Updated DateTime 3 154.94 cm 97.2 [degF] 50.4 kg/m2 458065. 37 g 16 /min 97 % 97 % 77 /min 142 mm[Hg] 88 mm[Hg] HERNANDO Del Cid [facility] 3 17:09:27 Date Recorded Systolic blood pressure Diastolic blood pressure Provider Name and Address Organization Details Last Updated DateTime 12/31/2022 130 mm[Hg] 82 mm[Hg] ANNABELLA López [address] [facility], [facility] [address], [place], [address], GIVTED 12/31/2022 17:58:48 Social History Question Answer Notes LastModified by Organizat ion Details LastModified Time Tobacco Smoking Status Never Smoker HERNANDO Del Cid null, GIVTED 12/31/2022 17:04:06 What Is Your Level Of Alcohol Consumption? Occasional [id number] Information not available 08/01/2022 What Is Your Level Of Caffeine Consumption? Moderate 1 Cup Daily [id number] Information not available 08/01/2022 How Much Tobacco Do You Chew? None [id number] Information not available 08/01/2022 In The 14 Days Before Symptom Onset, Have You Had Close Contact With A Laboratory-confir med COVID-19 While That Case Was Ill? No [email or web address] Information not available 12/31/2022 In The 14 Days Before Symptom Onset, Have You Had Close Contact With A Person Who Is Under Investigation For COVID-19 While That Person Was Ill? No [email or web address] Information not available 12/31/2022 Are You Currently Employed? Yes [email or web address] Information not available 12/31/2022 What Type Of Diet Are You Following? REGULAR [id number] Information not available 08/01/2022 Do You Or Have You Ever Used E-cigarettes Or Vape? Never Used Electronic Cigarettes [email or web address] Information not available 12/31/2022 What Is Your Occupation? Registered Nurses [email or web address] Information not available 12/31/2022 Have There Been Any Changes To Your Family Or Social Situation? No Information no t available 12/31/2022 Are There Any Guns Present In Your Home? No [email or web address] Information not available 12/31/2022 Do You Use Insect Repellent Routinely? No [email or web address] Information not available 12/31/2022 What Was The Date Of Your Most Recent Tobacco Screening? 08/08/2020 [email or web address] Information not available 12/31/2022 What Is Your Relationship Status? [id number] Information not available 08/01/2022 Do You Use Your Seat Belt Or Car Seat Routinely? Yes [email or web address] Information not available 12/31/2022 Do You Have Smoke And Carbon Monoxide Detectors In Your Home? Yes [email or web address] Information not available 12/31/2022 Are You Passively Exposed To Smoke? No [email or web address] Information no t available 12/31/2022 Do You Or Have You Ever Used Smokeless Tobacco? Never Used Smokeless Tobacco [id number] Information not available 08/01/2022 How Much Tobacco Do You Smoke? No [id number] Information not available 08/01/2022 Do You Use Any Illicit Or Recreational Drugs? No [email or web address] Information not available 12/31/2022 Do You Use Sunscreen Routinely? Yes [email or web address] Information not available 12/31/2022 How Many Years Have You Smoked Tobacco? 0 [email or web address] Information not available 12/31/2022 Have You Recently Traveled Abroad? No [email or web address] Information not available 12/31/2022 Do You Have Any Dietary Restrictions? No [email or web address] Information not available 12/31/2022 Do You Or Have You Ever Used Any Other Forms Of Tobacco Or Nicotine? No [email or web address] Information not available 12/31/2022 Sex: Unknown Functional Status Question Answer Note LastModified by Organizat ion Details LastModified Time What is your exercise level? Moderate [id number] Information not available 08/01/2022 Mental Status None recorded. Family History Relationship Description Onset Age of this Age Resolved Age Notes LastModified by Organization Details LastModified Time Mother Diabetes mellitus [id number] Not available 08/01/2022 01:05:34 Mother Malignant neoplasm of uterus tino Not available 12/31 17:04:02 Mother Malignant tumor of breast tino Not available 12/31 17:04:02 Mother Malignant tumor of colon tino Not available 12/31 17:04:02 Medical History Condition Response BLINDNESS N NERVE DISEASE N RHEUMATIC FEVER N BLADDER PROBLEMS N KIDNEY STONES N OTHER # 1 N POLIO N LUNG DISEASE/DISORDER N RADIATION / CHEMOTHERAPY N COPD N Other # 2 N BLOOD DISEASES N SURGERY N EAR OR HEARING PROBLEMS N MUMPS N DEPRESSION (INCLUDING POST ) Y BOWEL PROBLEMS N STROKE/TIA N ULCERS N BENIGN PROSTATIC HYPERPLASIA N MEASLES N MYOCARDIAL INFARCTION N OBESITY N GERD/NAUSEA N ANEURYSM N URINARY/BLADDER/KIDNEY PROBLEMS N INPATIENT PSYCH CARE N CORONARY ARTERY DISEASE (CAD) N ADDICTION CONCERNS N ENDOMETRIOSIS N Impotence N USE OF BLOOD THINNERS N SKIN PROBLEMS N GASTROINTESTINAL DISORDER N PERIPHERAL VASCULAR DISEASE N MUSCLE,JOINT OR BONE PROBLEMS N GASTROINTESTINAL BLEEDING N BLOOD CLOTS N ASTHMA N CATARACTS N ERECTILE DYSFUNCTION N VARICOSITIES N GI PROBLEMS N Low Testosterone N INFERTILITY N AIDS/HIV N LIVER DISEASE N MALE HYPOGONADISM N HYPERTENSION Y Deficiency N ANXIETY DISORDER Y BLOOD TRANSFUSION N ANEMIA/BLOOD DISORDER N CHRONIC EAR INFECTIONS N BRONCHITIS N TUBERCULOSIS N GLAUCOMA N DIVERTICULITIS N SLEEP APNEA N CHICKENPOX N INFECTIOUS DISEASE N HEART ARRHYTHMIA N PROSTATE N INSOMNIA N HIGH CHOLESTEROL / HYPERLIPIDEMIA Y HYPERTHYROIDISM N EYE PROBLEMS Y NEUROLOGICAL PROBLEMS N EDEMA N CHRONIC PAIN SYNDROME N HYPOTHYROIDISM N CAROTID BLOCKAGE N CONSTIPATION N BACK / NECK PROBLEMS N HAVE YOU BEEN HOSPITALIZED OR SEEN IN [facility] IN THE PAST YEAR ? N ATHEROSCLEROSIS N BREAST PROBLEMS Y DIALYSIS N ECZEMA N OSTEOPOROSIS N ARTHRITIS N NO SIGNIFICANT PAST MEDICAL HISTORY N APPENDICITIS N DIABETES, TYPE N BAD TEETH N ENT N HEARTBURN / REFLUX N AUTISM SPECTRUM DISORDER (ASD) N HEPATITIS / LIVER DISEASE N PULMONARY DISEASE N GOUT N SLEEP DISORDER N ALZHEIMER'S DISEASE N Brain Problems N HERPES N DEMENTIA N HEADACHES/MIGRAINES N SEIZURES/EPILEPSY N VASCULAR DISEASE N PACEMAKER N Blood Disorder N DIZZINESS N HEART DISEASE/HEART PROBLEMS N KIDNEY DISEASE N MULTIPLE SCLEROSIS N CARDIAC ARRHYTHMIA N CANCER: SPECIFY N ANESTHESIA COMPLICATIONS N ATRIAL FIBRILLATION N Gall Stones N PULMONARY EMBOLISM N AUTOIMMUNE DISEASE N Gynecological History Statement/Question Response Date of Last Mammogram 05/06/2020 Date of Last Colonoscopy 05/18/2016 Obstetrics History GPAL:G 6 P 0 0 0 2 Type Value Living 2 Total 6 Immunizations Vaccine Type Date Status Note Provider Nam e and Address Organization Details Recorded Time COVID-19, mRNA, LNP-S, PF, 30 mcg/0.3 mL dose 1 completed Not Available formerly [facility] 08/01/2022 01:20:26 COVID-19, mRNA, LNP-S, PF, 30 mcg/0.3 mL dose 1 completed Not Available formerly [facility] 08/01/2022 01:20:27 influenza, unspecified formulation 5 completed Not Available formerly [facility] 08/01/2022 01:20:27 Past Encounters Encounter ID Performer Location Encounter Start Date Encounter Closed Date Diagnosis/Indication Diagnosis SNOMED-CT Code Diagnosis ICD10 Code Diagnosis Note [id number] ANNABELLA López [facility] [address] [place] [address] 08/08/2020 00:00:00 08/28/2020 11:55:25 [id number] ANNABELLA López [facility] [address] [place] [address] 03/07/2021 00:00:00 03/30/2021 23:42:47 [id number] Raji Schuler MD [facility] [address] [place] [address] 12/26/2021 00:00:00 12/29/2021 11:09:24 [id number] ANNABELLA López [facility] [address] [place] [address] 07/02/2022 00:00:00 07/03/2022 10:20:16 [id number] ANNABELLA López [facility] [address] [place] [address] 12/31/2022 17:03:54 12/31/2022 17:38:22 Adult health examination 423714121 Z00.00 well exam completed. labs are due. she didn't get them completed prior to appt Coronary atherosclerosis 038481988 I25.10 stable. no chest pain, sob or mari Impaired g lucose tolerance 3032095 R73.03 due for a1c. Hyperlipidemia 36872104 E78.5 on statin therapy. fasting lipids due Benign hypertension 1072 5009 I10 stable on medication s Hypothyroidism 01481731 E03.9 stable on supplement Osteoarthr itis of knee 384172609 M17.9 no acute changes. Body mass index 40+ - severely obese 282141210 Z68.43 Long-term drug therapy 194936030 Z79.899 Health Concerns Section Related Observation LastModified by Organization Detai ls LastModified Time None Recorded Concern Status LastModified by Organization Details LastModified Time None Recorded Advance Directives Directive None Recorded Payers Encounter Date Sequence Insurance Name Policy Number Policy Calderón Covered Member ID Calderón Member ID Guarantor Name 12/31/2022 1 [facility] [id number] Autumn Garza [id number] Autumn Garza Notes Date Note Type Note Provider Name and Address Organization Details Recorded Time 08/09/19 21 text/ht ml Coronary Artery Disease F/UReported bypatient.Context:non-smoker Associated Symptoms:no chest pain; no neck pain; no left arm pain; no dyspnea with exertion; no sweating; no nausea; no stressNotes:stable, follows with cardiology too. asymptomatic of Chest pain or SOBGeneric HPI TemplateReported bypatient.Notes:Pt presents today for yearly wellness exam. Pt reports she had partial knee replacement of left knee in 2019 and has been exercising daily since.HypertensionReported bypatient.Alleviating Factors:medication Self Care:not under emotional stress Associated Symptoms:no shortness of breath; no fatigue; no palpitations; no decline in exercise capacity; no snoringHypothyroidReported bypatient.Reason for Visit:general check-up Treatment:taking medication as directed Not Available [facility] [place] 08/28/2020 11:55:25 03/07/20 21 text/ht ml Coronary Artery Disease F/UReported bypatient.Notes:hx of NSTEMI and one stent placedHyperlipidemiaReported bypatient.Control:usually well controlled; improving; at goal Compliance:compliant; compliant with diet; exercises Complications:no coronary artery disease; no peripheral artery disease; no cardiovascular diseaseHypertensionReported bypatient.Onset/Timing:better Self Care:not under emotional stress Associated Symptoms:no shortness of breath; no fatigue; no palpitations; no decline in exercise capacity; no snoringHypothyroidismReported bypatient.Onset/Timing:better Context/Risk:normal thyroid levels; no history of head or neck radiation during childhood; no history of thyroid disease; no history of hypothyroidism; no history of hyperthyroidism; no excess iron exposure Exercisegets exercise Associated Symptoms:no cold intolerance; no heat intolerance; no weight loss; no weight gain; no double vision; no dry eyes; no hoarseness; no difficulty swallowing; no neck masses; no deepening of the voice; no fast heart rate; no increased blood pressure; no palpitations; no chest pain; no chest tightess or pressure; no constipation; no diarrhea; no vomiting; no decreased appetite; no loose stools; no irregular menstrual periods; no excessive sweating; no joint pain; no numbness; no tingling of the hands or feet; no dry skin; no tremor; no nervousness; no anxiety; no depression; no fatigue; no sleep difficulties; no skin changes; no hair changes Not Available [facility] 03/30/2021 23:42:47 12/27/19 22 text/ht ml Coronary Artery Disease F/UReported bypatient.Notes:hx of NSTEMI and one stent placedHyperlipidemiaReported bypatient.Control:usually well controlled; improving; at goal Compliance:compliant; compliant with diet; exercises Complications:no coronary artery disease; no peripheral artery disease; no cardiovascular diseaseHypertensionReported bypatient.Duration:has noted for years Onset/Timing:better Alleviating Factors:medication Self Care:under emotional stress Associated Symptoms:no shortness of breath; no palpitations; no decline in exercise capacity; no snoring;fatigueHypothyroidismRep orted bypatient.Quality:not changing Duration:constant Onset/Timing:better Context/Risk:normal thyroid levels; no history of head or neck radiation during childhood; no history of thyroid disease; no history of hyperthyroidism; no excess iron exposure;history of hypothyroidism;female gender Modifying Factors:medication Exercisegets exercise Associated Symptoms:no cold intolerance; no heat intolerance; no weight loss; no weight gain; no double vision; no dry eyes; no hoarseness; no difficulty swallowing; no neck masses; no deepening of the voice; no fast heart rate; no increased blood pressure; no palpitations; no chest pain; no chest tightess or pressure; no constipation; no diarrhea; no vomiting; no decreased appetite; no loose stools; no irregular menstrual periods; no excessive sweating; no joint pain; no numbness; no tingling of the hands or feet; no dry skin; no tremor; no nervousness; no anxiety; no depression; no fatigue; no sleep difficulties; no skin changes; no hair changes Not Available [place] - [facility] 12/29/2021 11:09:24 07/02/19 23 text/ht ml Coronary Artery Disease F/UReported bypatient.Notes:hx of NSTEMI and one stent placedHyperlipidemiaReported bypatient.Duration:chronic Control:usually well controlled; improving; at goal Current Therapy:currently taking: (rosuvastatin 10mg) Compliance:compliant; compliant with diet; exercises Complications:no coronary artery disease; no peripheral artery disease; no cardiovascular diseaseHypertensionReported bypatient.Duration:has noted for years Onset/Timing:better Alleviating Factors:medication Self Care:under emotional stress Associated Symptoms:no shortness of breath; no palpitations; no decline in exercise capacity; no snoring;fatigueHypothyroidismRep orted bypatient.Quality:not changing Duration:constant Onset/Timing:better Context/Risk:normal thyroid levels; no history of head or neck radiation during childhood; no history of thyroid disease; no history of hyperthyroidism; no excess iron exposure;history of hypothyroidism;female gender Modifying Factors:medication Exercisegets exercise Associated Symptoms:no cold intolerance; no heat intolerance; no weight loss; no weight gain; no double vision; no dry eyes; no hoarseness; no difficulty swallowing; no neck masses; no deepening of the voice; no fast heart rate; no increased blood pressure; no palpitations; no chest pain; no chest tightess or pressure; no constipation; no diarrhea; no vomiting; no decreased appetite; no loose stools; no irregular menstrual periods; no excessive sweating; no joint pain; no numbness; no tingling of the hands or feet; no dry skin; no tremor; no nervousness; no anxiety; no depression; no fatigue; no sleep difficulties; no skin changes; no hair changes Not Available [facility] 07/03/2022 10:20:16 01/01/20 23 text/ht ml Coronary Artery Disease F/UReported bypatient.Notes:hx of cardiac stenting. follows with cardiology routinely. due for labs.HyperlipidemiaReported bypatient.Duration:chronic Control:usually well controlled Compliance:compliant; compliant with diet; exercises Complications:no coronary artery disease; no peripheral artery disease; no cardiovascular disease Risk Factors:hypertensionHypertension Reported bypatient.Duration:has noted for years Alleviating Factors:medication Associated Symptoms:no shortness of breath; no palpitations; no decline in exercise capacity; no snoring;fatigueHypothyroidismRep orted bypatient.Quality:not changing Duration:constant Onset/Timing:still present Context/Risk:normal thyroid levels; no history of head or neck radiation during childhood; no history of thyroid disease; no history of hyperthyroidism; no excess iron exposure;history of hypothyroidism;female gender Modifying Factors:medication Exercisegets exercise Associated Symptoms:no cold intolerance; no heat intolerance; no weight loss; no weight gain; no double vision; no dry eyes; no hoarseness; no difficulty swallowing; no neck masses; no deepening of the voice; no fast heart rate; no increased blood pressure; no palpitations; no chest pain; no chest tightess or pressure; no constipation; no diarrhea; no vomiting; no decreased appetite; no loose stools; no irregular menstrual periods; no excessive sweating; no joint pain; no numbness; no tingling of the hands or feet; no dry skin; no tremor; no nervousness; no anxiety; no depression; no sleep difficulties; no skin changes;fatigue;hair changes Wellness ANNABELLA López [address], [address], [facility] [employer] [facility] 12/31/2022 18:00:39 OBGyn Episode No OBEpisode recorded.
--- OUTSIDE RECORDS SUMMARY | 2024-09-25 07:32 | XMS_ITS | Referral Summary ---
Author Organization [facility] [address] Address [address] [place] [address] Care Team Providers Care Bookkeeping Clerks Supervisor Name Role Phone Sallie Myles Primary Care Pr ovider Allergies No known active allergies Medications losartan-hydroc hlorothiazide (HYZAAR) 100-25 mg per tablet Take 1 tablet by mouth daily Active levothyroxine (SYNTHROID, LEVOTHROID) 100 mcg tablet 1 tablet (100 mcg total) daily Active meloxicam (MOBIC) 7.5 mg tablet 1 tablet (7.5 mg total) daily Active multivit with minerals/lutein (MULTIVITAMIN 50 PLUS ORAL) daily. Active polycarbophil (FIBERCON) 625 mg tablet Take 1 tablet (625 mg total) by mouth daily Active cholecalciferol (VITAMIN D-3) 1,000 unit capsule 1 capsule (1,000 Units total) daily Active aspirin 81 mg enteric coated tablet Take 1 tablet (81 mg total) by mouth daily Active metoprolol XL (TOPROL-XL) 50 mg 24 hr tablet Take 1 tablet (50 mg total) by mouth daily 90 tablet 3 05/01/2019 Active rosuvastatin (CRESTOR) 10 mg tablet Take 1 tablet (10 mg total) by mouth daily 90 tablet 3 07/28/2019 Active atorvastatin (LIPITOR) 20 mg tablet TAKE 1 TABLET BY MOUTH ONCE DAILY AT NIGHT. 08/16/2022 Active letrozole (FEMARA) 2.5 mg tablet Take 1 tablet (2.5 mg total) by mouth daily 08/20/2022 Active potassium chloride 10 mEq/100 mL Infuse 100 mL (10 mEq total) into a venous catheter Active Active Problems Problem Noted Date Diagnosed Date Coronary artery disease invo lving [place] coronary artery of [place] heart without angina pectoris 10/03/2018 History of non-ST elevation myocardial infarctio n (NSTEMI) 10/03/2018 History of syncope 10/03/2018 Presence of stent in coronary artery 10/03/2018 Essential hypertension 10/03/2018 NAFLD (nonalcoholic fatty liver disease) 019 History of partial thyroidectomy 10/03/2018 S/P AG-BSO (total abdominal hysterectomy and bilateral salpingo-oophorectomy) 10/03/2018 History of small bowel obstruction 10/03/2018 Social History Tobacco Use Types Packs/Day Years Used Date Smoking Tobacco: Never Smokeless Tobacco: Never Tobacco Cessation:Counseling Given: Not Answered Alcohol Use Standard Drinks/Week Comments No 0 (1 standard drink = 0.6 oz pur e alcohol) SOCIAL DRINKER A COUPLE A WEEK Personal Safety Answer Date Recorded Getting School Help Needed Not on file 07/06 Comments Unknown Sex and Gender Information Value Date Recorded Sex Assigned at Not on file 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 Gender Identity Not on file Sexual Orientation Not on file Last Filed Vital Signs Vital Sign Reading Time Taken Comments Blood Pressure 130/72 09/17/2023 9:17 AM CDT Pulse 77 09/17/2023 9:17 AM CDT Temperature - - Respiratory Rate - - Oxygen Saturation 97% 09/17/2023 9:17 AM CDT Inhaled Oxygen Concentration - - Weight 102 kg (224 lb 12.8 oz) 09/17/2023 9:17 A M CDT Height 157.5 cm (5' 2 ) 09/17/2023 9:17 AM CDT Body Mass Index 41.12 09/17/2023 9:17 AM CDT Plan of Treatment Not on file Insurance [facility] Address: [address] [place] [address] [facility] Address: [place] [address] Care Teams Bookkeeping Clerks Supervisor Relationship Specialty Start Date End Date Sallie Myles PA PCP - General Physician Operations Administrative Assistant 05/23/18
--- OUTSIDE RECORDS SUMMARY | 2024-09-25 07:32 | XMS_ITS | Clinical Summary ---
Author Organization [facility] Address [address] [place] [id number] Care Team Providers Care Street Roller Engineer Name Role Phone Sallie Myles Primary Care Provider [phone] Allergies No known active allergies Medications losartan 100 MG tablet Take 100 mg by mouth daily. Active hydroCHLOROthiazid e 25 MG tablet Take 25 mg by mouth every morning. Active meloxicam 7.5 MG tablet Take 7.5 mg by mouth daily. Active rosuvastatin 20 MG tablet Take 20 mg by mouth nightly at bedtime. Active aspirin EC (ASPIRIN EC) 81 MG tablet Take 81 mg by mouth daily. Active Cholecalciferol (VITAMIN D-3 OR) Take by mouth daily. Active Calcium Polycarbophil (FIBERCON OR) Take by mouth daily. Active levothyroxine (EUTHYROX) 112 MCG tablet Take 112 mcg by mouth daily. Active metoprolol succinate ER 100 MG 24 hr tablet Take 100 mg by mouth daily. Active Active Problems Problem Noted Date Diagnosed Date Essential hypertension 10/03/2018 History of non-ST elevation myocardial infarctio n (NSTEMI) 10/03/2018 Hypertension, essential, benign Dyslipidemia Resolved Problems Problem Noted Date Diagnosed Date Resolved Date CAD (coronary artery disease) 03/04/2020 01/31/2021 Family History Medical History Relation Comments Heart Attack Sister Open Heart Sister Relation Status Comments Brother Alive Father Alive Mother Alive Sister Alive Social History Tobacco Use Types Packs/Day Years Used Date Smoking Tobacco: Never Smokeless Tobacco: Never Alcohol Use Standard Drinks/Week Comments Yes 0 (1 standard drink = 0.6 oz pur e alcohol) 2-3 per week Comments Unknown Sex and Gender Information Value Date Recorded Sex Assigned at Not on file 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 Gender Identity Not on file Sexual Orientation Not on file Last Filed Vital Signs Vital Sign Reading Time Taken Comments Blood Pressure 130/60 01/31/2021 9:26 AM CDT Pulse 68 01/31/2021 9:26 AM CDT Temperature - - Respiratory Rate - - Oxygen Saturation - - Inhaled Oxygen Concentration - - Weight 97.5 kg (215 lb) 01/31/2021 9:26 AM CDT Height 157.5 cm (5' 2 ) 01/31/2021 9:26 AM CDT Body Mass Index 39.32 01/31/2021 9:26 AM CDT Plan of Treatment Health Maintenance Due Date Last Done Comments Colorectal Cancer Screening Colonoscopy (10 Years) 1961 Annual Physical 1964 Hepatitis C 08/19/1979 DTaP, Tdap and Td Vaccines ( 1 - Tdap) 1980 Mammogram Screening 2001 Pneumococcal Vaccine: 50+ Years (1 of 1 - PCV) 08/19/2011 Zoster Vaccines (1 of 2) 08/19/2011 COVID-19 Vaccine (3 - 2023-2 5 season) 2024 06/28/2020, 06/07/2020 RSV Immunization or 60+ Years (1 - 1-dose 75+ series) 2036 Meningococcal B Vaccine Aged Out No l onger eligible based on patient's age to complete this topic Meningococcal Vaccine Aged Out No nguyễn ashlyn eligible based on patient's age to complete this topic RSV Immunizations Under 20 Months Aged Out No longer eligible b ased on patient's age to complete this topic Care Teams Street Roller Engineer Relationship Specialty Start Date End Date Sallie Myles PA [address] [place] [phone] PCP - General PHYSICIAN MACHINE SEWER 11/24/20
--- OUTSIDE RECORDS SUMMARY | 2024-09-25 07:32 | XMS_ITS | Data Portability ---
Author Organization [facility] JIMegGrassflat H Address [address] [place] [address] Assessment Encounter Date Assessment Date Assessment LastModified by Organization Details LastModified Time 09/30/2023 09/30/2023 DEXA scan december planned Tumor marker lab annually. Mammogram annually at [facility], due end of october. left sided breast cancer 2021, and she had double mastectomy with implants. colonoscopy 2022. dr. taylor, one small polyp. few int hems. 5 year f/u. Not available 09/30/2023 18:05:19 04/13/2024 04/13/2024 DEXA scan december planned Tumor marker lab annually. Mammogram annually at [facility], due end of october. left sided breast cancer 2021, and she had double mastectomy with implants. sees them every 6months the oncologist or breast specialist colonoscopy 2022. dr. taylor, one small polyp. few int hems. 5 year f/u. Not available 04/13/2024 17:25:38 Plan of Treatment Reminders Order Date Submit Date Provider Last Modified By Organization Details Last Modified Time Details Appointments ANY 15 2024 04:15P M ANNABELLA López Not available Not available Not available ANY 15 2024 11:00A M ANNABELLA López Not available Not available Not available Lab insuli n, serum [address] Outpatient Registration Lab/Ekg, [address], [place], [address], 07/27/2024 14:22:04 HbA1c (hemog lobin A1c), blood 2023 024 [facility] Outpatient Registration Lab/Ekg, [address], [place], [address], 06/18/2024 17:46:24 CMP, serum or plasma 2023 024 [facility] Outpatient Registration Lab/Ekg, [address], [place], [address], 06/17/2024 12:35:20 CBC w/ auto diff 2023 024 [facility] Outpatient Registration Lab/Ekg, [address], [place], [address], 06/17/2024 12:32:05 vitami n B12 + folate , serum or blood 2023 024 [facility] Outpatient Registration Lab/Ekg, [address], [place], [address], 06/17/2024 12:36:02 TSH + free T4, serum [address] Outpatient Registration Lab/Ekg, [address], [place], [address], 06/26/2024 09:17:11 lipid panel, serum 2023 024 [facility] Outpatient Registration Lab/Ekg, [address], [place], [address], 06/17/2024 12:35:48 CMP, serum or plasma 2023 024 [facility] Outpatient Registration Lab/Ekg, [address], [place], [address], 12/17/2023 13:10:48 CBC w/ auto diff 2023 024 [facility] Outpatient Registration Lab/Ekg, [address], [place], [address], 12/17/2023 13:08:26 vitami n B12 + folate , serum or blood [address] Outpatient Registration Lab/Ekg, [address] [facility] [address], [place], [address], 03/19/2024 09:03:44 lipid panel, serum 2023 024 [facility] Outpatient Registration Lab/Ekg, [address], [place], [address], 12/17/2023 13:08:13 insuli n, serum 2023 024 [facility] Outpatient Registration Lab/Ekg, [address], [place], [address], 12/17/2023 13:09:47 HbA1c (hemog lobin A1c), blood 2023 024 [facility] Outpatient Registration Lab/Ekg, [address], [place], [address], 12/17/2023 13:08:54 TSH + free T4, serum [address] Outpatient Registration Lab/Ekg, [address], [place], [address], 03/19/2024 09:03:39 Referral None record ed. Procedures None record ed. Surgeries None record ed. Imaging None record ed. Medication Orders None record ed. Patient TargetsNo targets recorded. Patient Instructions Encounter Date Encounter Id Patient Instructions Last Modified By Organization Details Last Modified Time 09/30/2023 [id number] A healthy lifestyle: care instructions Not available 09/30/2023 19:15:10 04/13/2024 [id number] A healthy lifestyle: care instructions Not available 04/13/2024 17:31:02 Reason for Referral None Reported. Results Created Date Observation Date Name Description Value Unit Range Abnormal Flag Note LastModifiedBy Organization Detail LastModifiedTime 08/18/1907/31/2024 XR, knee No observ ation record ed. BARCODE Not Available 2024 11:47:18 Result Notes None recorded. Problems Name Problem SNOMED Code Status Onset Date Resolution Date Notes Provider Name and Address Organization Details Recorded Time Coronary atherosclerosi s 086035265 Active 2023 ANNABELLA López Attn: Joslynalex crockett,[address] [facility], [place], [address], [place] [facility] 4 19:14:57 History of placement of stent for coronary artery disease 394636757 Active 2023 ANNABELLA López Attn: Kahlil g,[address] [facility], [place], [address], [place] [facility] 4 19:14:57 History of malignant neoplasm of breast 144742579 Active 2023 ANNABELLA López Attn: Kahlil crockett,[address] [facility], [place], [address], [place] [facility] 4 19:14:58 Benign essential hypertension 9375058 Active 2023 ANNABELLA López Attn: Kahlil crockett,[address] [facility], [place], [address], [place] [facility] 4 19:15:00 Hypothyroidism 76733209 Active 2023 ANNABELLA López Attn: Kahlil crockett,[address] [facility], [place], [address], [place] [facility] 4 19:15:01 Hyperlipidemia 21667440 Active 2023 ANNABELLA López Attn: Kahlil g,[address] [facility], [place], [address], [place] [facility] 4 19:15:02 Anxiety 08155385 Active 2023 ANNABELLA López Attn: Kahlil g,[address] [facility], [place], [address], [place] [facility] 4 19:15:04 Long-term drug therapy Active 2023 ANNABELLA López Attn: Accountalex g,[address] [facility], [place], [address] [facility] 4 19:15:05 Obesity 701444943 Active 2023 ANNABELLA López Attn: Accountalex g,[address] [facility], [place], [address], [place] [facility] 4 19:15:07 Body mass index 40+ - severely obese 906607391 Active 2023 ANNABELLA López Attn: Accountin g,[address] [facility], [place], [address] [facility] 4 19:15:09 Prediabetes 877497270 Active 2023 ANNABELLA López Attn: Accountin g,[address] [facility], [place], [address] [facility] 4 12:14:15 Benign hypertension 82559939 Active 2024 ANNABELLA López Attn: Accountalex g,[address] [facility], [place], [address] [facility] 5 13:17:49 Morbid obesity 033066260 Active 2024 ANNABELLA López Attn: Joslynalex g,[address] [facility], [place], [address], [place] [facility] 5 13:17:51 Problem Notes None recorded. Procedures Surgical History Date Name Laterality Status Provider Name and Address Organization Details Recorded Time Angioplasty With Stent completed KARY Chino [facility] 09/30/2023 17:24:44 Joint Replacement completed KARY Chino [facility] 09/30/2023 17:24:51 excision of bilateral fallopian tubes and ovaries completed KARY Chino [facility] 09/30/2023 17:25:23 Breast Surgery completed KARY Pham [facility] 09/30/2023 17:25:29 Mastectomy completed Ama Wade [place] [facility] 09/30/2023 17:25:38 Total hysterectomy completed Ama Wade [place] [facility] 09/30/2023 17:25:44 Imaging Results Imaging Date Name Status LastModified by Organiz ation Details LastModified Time 07/31/2024 XR, knee completed [facility] Information no t available 08/17/2024 11:47:18 Procedure Notes None recorded. Medical Equipment None Reported. Allergies No known drug allergies Medications Name Sig Start Date Stop Date Status Note LastModified by Organization Details LastModified Time azithromyci n 250 mg tablet TAKE 2 TABLETS BY MOUTH ON DAY 1, AND THEN TAKE 1 TABLET BY MOUTH ONCE A DAY ON DAY 2 THROUGH DAY 5 active Not Available Not Available No t Available benzonatate 200 mg capsule TAKE 1 CAPSULE BY MOUTH THREE TIMES DAILY FOR COUGH active Not Available Not Available No t Available metoprolol succinate ER 100 mg tablet,exte nded release 24 hr TAKE 1 TABLET BY MOUTH ONCE DAILY active Not Available Not Available No t Available meloxicam 7.5 mg tablet TAKE 1 TABLET BY MOUTH ONCE DAILY NEEDED active Not Available Not Available No t Available famotidine 20 mg tablet Take 1 tablet as needed by oral route for 30 days. active Not Available Not Available No t Available dicyclomine 20 mg tablet Take 1 tablet as needed by oral route for 10 days. active Not Available Not Available No t Available codeine 10 mg-guaifene sin 100 mg/5 mL oral liquid TAKE 10 ML BY MOUTH EVERY 4 TO 6 HOURS NEEDED active Not Available Not Available No t Available hydrochloro thiazide 25 mg tablet TAKE 1 TABLET BY MOUTH ONCE DAILY active Not Available Not Available No t Available mupirocin 2 % topical ointment APPLY OINTMENT TOPICALLY TWICE DAILY INTRANASA LLY 04/13 completed Not Available Not Available Not Available letrozole 2.5 mg tablet TAKE 1 TABLET BY MOUTH ONCE DAILY active Not Available Not Available No t Available methylpredn isolone 4 mg tablets in a dose pack TAKE BY MOUTH DIRECTED ON INSIDE OF PACKAGE active Not Available Not Available No t Available ondansetron 4 mg disintegrat ing tablet Place by oral route for 3 days. active Not Available Not Available No t Available losartan 100 mg tablet TAKE 1 TABLET BY MOUTH ONCE DAILY active Not Available Not Available No t Available levothyroxi ne 112 mcg tablet TAKE 1 TABLET BY MOUTH ONCE DAILY active Not Available Not Available No t Available amoxicillin 875 mg-potassiu m clavulanate 125 mg tablet TAKE 1 TABLET BY MOUTH EVERY 12 HOURS active Not Available Not Available No t Available rosuvastati n 10 mg tablet TAKE 1 TABLET BY MOUTH ONCE DAILY active Not Available Not Available No t Available Contrave 8 mg-90 mg tablet,exte nded release 2 tabs po bid. 2024 active Not Available Not Available Not Avai lable Vitals Date Recorded Body weight Body mass index (BMI) Body height Heart rate Oxygen saturation Oxygen saturation in Arterial blood by Pulse oximetry Systolic blood pressure Diastolic blood pressure Provider Name and Address Organization Details Last Updated DateTime 4 750904. 71 g 42.5 kg/m2 154.94 cm 65 /min 98 % 98 % 150 mm[Hg] 68 mm[Hg] Ama Wade MA [facility] 4 17:29:14 Date Recorded Respiratory rate Provider Name a az Address Organization Details Last Updated DateTime 09/30/2023 16 /min ANNABELLA López Attn: Accounting,[address] [place], [address], [facility] 09/30/2023 19:10:47 Date Recorded Body height Body mass index (BMI) Body weight Respiratory rate Systolic blood pressure Diastolic blood pressure Provider Name and Address Organization Details Last Updated DateTime 4 154.94 cm 41.8 kg/m2 917186. 91 g 18 /min 140 mm[Hg] 80 mm[Hg] Hussain Ortega MA [facility] 4 17:12:12 Date Recorded Heart rate Systolic blood pressure Diastolic blood pressure Provider Name and Address Organization Details Last Updated DateTime 04/13/2024 80 /min 150 mm[Hg] 90 mm[Hg] ANNABELLA López Attn: Accounting,[address] [place], [address], [facility] 04/13/2024 17:37:48 Date Recorded Body height Body mass index (BMI) Body weight Oxygen saturation Oxygen saturation in Arterial blood by Pulse oximetry Heart rate Systolic blood pressure Diastolic blood pressure Provider Name and Address Organization Details Last Updated DateTime 154.94 cm 41.4 kg/m2 78986.7 3 g 98 % 98 % 78 /min 170 mm[Hg] 88 mm[Hg] Hussain Ortega MA [facility] 13:00:03 Date Recorded Respiratory rate Body temperature Systolic blood pressure Diastolic blood pressure Provider Name and Address Organization Details Last Updated DateTime 09/17/2024 16 /min 98.3 [degF] 160 mm[Hg] 80 mm[Hg] ANNABELLA López Attn: Kahlil crockett,[address] [facility], [place], [address], [facility] 13:17:05 Social History Question Answer Notes LastModified by Organizat ion Details LastModified Time Tobacco Smoking Status Never Smoker Ama Wade MA null, [facility] 09/30/2023 17:21:58 Do You Have An Advance Directive? Yes Living Will Information not available 09/30/2023 What Is Your Level Of Alcohol Consumption? Occasional 2 To 3 Beers A Week Information not available 09/30/2023 Are You Blind Or Do You Have Difficulty Seeing? Yes Glasses Information not available 09/30/2023 What Is Your Level Of Caffeine Consumption? Moderate 2 Cups Of Coffee Every Day Information not available 09/30/2023 In The 14 Days Before Symptom Onset, Have You Had Close Contact With A Laboratory-confir med COVID-19 While That Case Was Ill? No Information not available 09/30/2023 In The 14 Days Before Symptom Onset, Have You Had Close Contact With A Person Who Is Under Investigation For COVID-19 While That Person Was Ill? No Information not available 09/30/2023 Have You Been To An Area Known To Be High Risk For COVID-19? No Information not available 09/30/2023 Are You Currently Employed? Yes Information not available 09/30/2023 Are You Deaf Or Do You Have Serious Difficulty Hearing? No Information not available 09/30/2023 What Type Of Diet Are You Following? 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 Yes Information not available 09/30/2023 What Was The Date Of Your Most Recent Tobacco Screening? 09/17/2024 [email or web address] Information not available 09/17/2024 What Is Your Relationship Status? Information not available 09/30/2023 Do You Use Your Seat Belt Or Car Seat Routinely? Yes Information not available 09/30/2023 Do You Have Smoke And Carbon Monoxide Detectors In Your Home? Yes Information not available 09/30/2023 Do You Feel Stressed (tense, Restless, Nervous, Or Anxious, Or Unable To Sleep At Night)? [id number] Information not available 09/30/2023 Do You Use Any Illicit Or Recreational Drugs? No Information not available 09/30/2023 Do You Use Sunscreen Routinely? Yes Information not available 09/30/2023 Has Tobacco Cessation Counseling Been Provided? No Information not available 09/30/2023 Do You Or Have You Ever Used Any Other Forms Of Tobacco Or Nicotine? No Information not available 09/30/2023 Sex: Female Functional Status Question Answer Note LastModified by Organizat ion Details LastModified Time Are you able to care for yourself? Yes Information not available 09/30/2023 What is your exercise level? Occasional Information not available 09/30/2023 Mental Status None recorded. Family History Relationship Description Onset Age of this Age Resolved Age Notes LastModified by Organization Details LastModified Time Mother Malignant tumor of colon mebyma Not available 2023 17:26:20 Mother Depressive disorder mebyma Not available 2023 17:26:25 Mother Diabetes mellitus mebyma Not available 2023 17:26:31 Mother Hypertensive disorder mebyma Not available 2023 17:26:46 Mother Kidney disease mebyma Not available 2023 17:26:53 Father Heart disease mebyma Not available 2023 17:26:38 Father Hypertensive disorder mebyma Not available 2023 17:26:46 Medical History Condition Response Muscle, Joint, or Bone Problems Y Heart Attack ([place]) Y High Blood Pressure Y Cancer Y Thyroid Problems Y Gynecological History Statement/Question Response If Post Menopausal, Age at Menopause Obstetrics History GPAL:G 2 P 2 0 0 2 Type Value Full Term 2 Living 2 Total 2 Past Encounters Encounter ID Performer Location Encounter Start Date Encounter Closed Date Diagnosis/Indication Diagnosis SNOMED-CT Code Diagnosis ICD10 Code Diagnosis Note [id number] ANNABELLA López [facility] [email or web address] [address] [place] [address] 09/30/2023 17:12:12 09/30/2023 18:31:35 Coronary atherosclerosis 049455160 I25.[address] blanc. History of placement of stent for coronary artery disease 840721266 Z95.5 x 1 stent in 3rd OM History of malignant neoplasm of breast 591804828 Z85.3 On letrozole x 5 years plan. follows with oncology routinely. Benign ess ential hypertension 3902659 I10 boost to metoprolol ER 100mg full tablet. BP elevated today. must lower witih CAD hx. Hypothyroidism 58695943 E03.9 stable on levothyrox ine 100mcg daily. thyroid panel due Hyperlipidemia 57609291 E78.5 stable on crestor 10mg daily. fasting lipids due Long-term drug therapy 541955446 Z79.899 routine cmp, cbc,. and b12, folate due Diabetes m ellitus screening 502379846 Z13.1 a1c screening due Anxiety 84821626 F41.9 stable. pt will reach out should she decide to start medication therapy. Body mass index 40+ - severely obese 586268224 Z68.41 discussed healthy diet, exercise, controllin g carbohydra pelon and added sugars in the diet Obesity 661361163 E66.9 discussed healthy diet, exercise, controllin g carbohydra pelon and added sugars in the diet [id number] ANNABELLA López [facility] [email or web address] [address] [place] [address] 04/13/2024 16:42:02 04/14/2024 10:16:51 Coronary atherosclerosis 830839701 I25.[address] blanc. All looked fine from cardio, seeing them again in september. History of placement of stent for coronary artery disease 238284289 Z95.5 x 1 stent in 3rd OM History of malignant neoplasm of breast 689959113 Z85.3 On letrozole x 5 years plan. follows with oncology routinely. Benign ess ential hypertension 9488306 I10 metoprolol ER 100mg full tablet. BP elevated today. must lower witih CAD hx. Hypothyroidism 13306060 E03.9 stable on levothyrox ine 100mcg daily. thyroid panel due Hyperlipidemia 43781969 E78.5 stable on crestor 10mg daily. fasting lipids due Anxiety 22852079 F41.9 Anxiety is stable at this time with no requests for any medication Long-term drug therapy 014157031 Z79.899 routine cmp, cbc,. and b12, folate due Body mass index 40+ - severely obese 892757625 Z68.41 History of elevated insulin at 47.7 on previous labs, she is due for updated lab Obesity 013277663 E66.9 discussed healthy diet, exercise, controllin g carbohydra pelon and added sugars in the diet Prediabetes 516393229 R7 3.03 5.8% A1c with a fasting glucose elevated on November labs. She is due for an updated A1c [id number] ANNABELLA López [facility] [place] [address] [place] [address] 09/17/2024 12:19:42 09/17/2024 13:24:50 Body mass index 40+ - severely obese 429781475 Z68.41 Morbid obesity 794334799 E66.01 Acute uppe r respiratory infection 23972214 J06.9 Acute cough 8158499666 37449615 R05.1 Benign hypertension 1072 5009 I10 metoprolol ER 100mg full tablet. BP elevated today. must lower witih CAD hx. she has had cough and cold agents on board. she has been coughing in exam room and BP is up secondary to that. Health Concerns Section Related Observation LastModified by Organization Arnold ls LastModified Time None Recorded Concern Status LastModified by Organization Details LastModified Time None Recorded Advance Directives Directive Y: Living will Payers Encounter Date Sequence Insurance Name Policy Number Policy Calderón Covered Member ID Calderón Member ID Guarantor Name 09/30/2023 1 [facility] [id number] Autumn Garza [id number] Autumn Landry 04/13/2024 1 [facility] [id number] Autumn Garza [id number] Autumn Landry Notes Date Note Type Note Provider Name and Address Organization Details Recorded Time 4 text/htm l Anxiety/DepressionReported bypatient.Notes:Anxiety has been higher lately. she is not on medication. she is not wanting any tx yet, but will consider later if needed. stressful job.Coronary Artery Disease F/UReported bypatient.Notes:hx of 1 stent in 3rd OM vessel. follows with dr. robertson in cardiology. stable. no c/o.HyperlipidemiaReported bypatient.Notes:stable on rosuvastatin 10mg daily. due for fasting labsHypertensionReported bypatient.Notes:on medications. bp is borderline today. she rushed around to get here and stressful day ThyroidReported bypatient.Notes:stable on thyroid supplement. due for labs. Hx of breast cancer. on letrozole. follows with oncology routinely ANNABELLA López Attn: Accounting,[address] [facility], [place], [address], [place] [facility] 09/30/2023 19:15:30 4 text/htm l Anxiety/DepressionReported bypatient.Notes:Anxiety has been higher lately. she is not on medication. she is not wanting any tx yet, but will consider later if needed. stressful job.Coronary Artery Disease F/UReported bypatient.Notes:hx of 1 stent in 3rd OM vessel. follows with dr. robertson in cardiology. stable. no c/o.HyperlipidemiaReported bypatient.Notes:stable on rosuvastatin 10mg daily. due for fasting labsHypertensionReported bypatient.Notes:on medications. bp is borderline today. she rushed around to get here and stressful day ThyroidReported bypatient.Notes:stable on thyroid supplement. due for labs. Hx of breast cancer. on letrozole. follows with oncology routinely ANNABELLA López Attn: Accounting,[address] [facility], [place], [address], [place] [facility] 05/01/2024 12:15:09 OBGyn Episode No OBEpisode recorded.
--- OUTSIDE RECORDS SUMMARY | 2024-09-25 07:32 | XMS_ITS | Clinical Summary ---
Author Organization [facility] [place] [place] [address] Address [address] [place] [address] Care Team Providers Care Cdl Truck Driver Name Role Phone Sallie Myles Primary Care [...] Diagnosed Date Coronary artery disease invo lving [place] coronary artery of [place] heart without angina pectoris 10/03/2018 History of non-ST elevation myocardial infarctio n (NSTEMI) 10/03/2018 History of syncope 10/03/2018 Presence of stent in coronary artery 10/03/2018 Essential hypertension 10/03/2018 NAFLD (nonalcoholic fatty liver disease) 019 History of partial thyroidectomy 10/03/2018 S/P AG-BSO (total abdominal hysterectomy and bilateral salpingo-oophorectomy) 10/03/2018 History of small bowel obstruction 10/03/2018 Surgical History Surgery Date Site/Laterality Comments TUBAL LIGATION 06/03/1994 - 06/02/1995 BLADDER SUSPENSION 06/03/1999 - 06/02/2000 TOTAL ABDOMINAL HYSTERECTOMY 06/03/2009 - 06/02/2010 THYROIDECTOMY 06/03/2012 - 06/02/2013 Right CARDIAC STENT PLACEMENT 09/01/2018 - 09/30/2018 Medical History Medical History Date Comments Hypertension Social History Tobacco Use Types Packs/Day Years [...] on file Legal Sex Female 2:34 PM [employer] Gender Identity Not on file Sexual Orientation Not on file Obstetrics History Last Filed Vital Signs Vital Sign Reading [...] 09/17/2023 9:17 AM CDT Plan of Treatment Health Maintenance Due Date Last Done Comments Breast Cancer Screening-Mammogram 1961 Colon Cancer Screening-Colonoscopy 1961 Depression Screening 1961 Hepatitis C Screening 1961 DTaP/Tdap/Td Vaccine (1 - Tdap) 1972 Hepatitis B Screening 08/19/1979 Regular Well Visit/Exam 18-64 08/19/1979 Pneumococcal vaccine <65 (1 of 2 - PCV) 1980 Zoster Vaccine (1 of 2) 1980 Influenza Vaccine (Season Ended) 2025 06/03/19 15 Insurance [facility] H[facility]/PPO Address: [address] [place] [phone] [facility] HMO/PPO Address: [address] [address] [place] [address] Care Teams Cdl Truck Driver Relationship Specialty Start Date End Date Sallie Myles PA PCP - General Physician Campus Coordinator 05/23/18
--- OUTSIDE RECORDS SUMMARY | 2024-09-25 07:32 | XMS_ITS | Encounter Summary ---
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
--- OUTSIDE RECORDS SUMMARY | 2024-09-25 07:32 | XMS_ITS | Encounter Summary ---
Author Organization [facility] Address [address] [place] [address] Care Team Providers Care Puzzle Assembler Name Role Phone Sallie Myles Primary Care Provider [phone] Encounter Details Date Type Department Care Team (Late st Contact Info) Description 02/06/2022 Abstract [facility], [address] [address] Amanda Ac MA Social History Tobacco Use Types Packs/Day Years Used Date Smoking Tobacco: Never Smokeless Tobacco: Never Alcohol Use Standard Drinks/Week Comments Yes 0 (1 standard drink = 0.6 oz pur e alcohol) 2-3 per week Comments Unknown Sex and Gender Information Value Date Recorded Sex Assigned at Not on file Legal Sex Female 3:06 PM SAFE EXPERT Gender Identity Not on file Sexual Orientation Not on file documented as of this encounter Plan of Treatment Not on file documented as of this encounter Procedures Procedure Name Priority Date/Time Associated Diagnosis Comments VITAMIN B-12 Routine 03/18/2021 COMPREHENSIVE METABOLIC PANEL Routine 03/18/2021 LIPID PANEL Routine 03/18/2021 FOLIC ACID SERUM Routine 03/18/2021 THYROID STIM HORMONE TSH Routine 03/18/2021 documented in this encounter Results * VITAMIN B-12 (03/18/2021) VITAMIN B12 S/P/B 383 03/18/2021 [facility] Final Result * FOLIC ACID SERUM (03/18/2021) Pathologist [facility] FOLATE >20 03/18/2021 us Doc [facility] Final Result * THYROID STIM HORMONE, TSH (03/18/2021) Pathologist [facility] TSH 0.595 03/18/2021 [facility] Final Result * LIPID PANEL (03/18/2021) Pathologist [facility] CHOLESTEROL 144 HDL 40 TRIGLYCERIDES 76 LDL (CALCULATED) 84 03/18/2021 us Doc [facility] Final Result * COMPREHENSIVE METABOLIC PANEL (03/18/2021) Pathologist [facility] SODIUM S/P/B 145 POTASSIUM S/P/B 4.0 CO2 28 CHLORIDE S/P/B 106 GLUCOSE 127 mg/dL CALCIUM S/P/B 9.3 BUN 17 CREATININE S/P/B 0.70 0.5 - 1.0 EGFR NON-AFR. AMER. >60 <=90 ALKALINE PHOSPHATASE S/P/B 66 ALT 30 AST 27 BILIRUBIN TOTAL S/P/B 0.5 ALBUMIN S/P/B 4.4 3.5 - 5.0 TOTAL PROTEIN S/P/B 7.0 03/18/2021 [facility] Doc [facility] Final Result documented in this encounter Visit Diagnoses Not on filedocumented in this encounter Care Teams Puzzle Assembler Relationship Specialty Start Date End Date Sallie Myles PA [address] [place] [address] PCP - General PHYSICIAN STRATEGY PLANNING CONSULTANT 11/24/20 documented as of this encounter
== END 2024-09-25 07:24 | disposition home or self-care (01) ==
PROVIDERS: PCP Physician Assistant; Visit Provider Physician Assistant
DX: R05.1 Acute cough (principal)
CPT/HCPCS: 71046

== ENCOUNTER 2024-11-09 08:44 | Outpatient (CLI) | payer OTHER, SELFPAY ==
[2024-11-09 09:19] LABS: Basophils Absolute Auto 0.1 K/mm3 (0.0-0.1); Basophils Percent Auto 1.1 % (0.2-1.2); Eosinophils Absolute Auto 0.1 K/mm3 (0-0.3); Eosinophils Percent Auto 1.4 % (0-4.4); Hematocrit 44.4 % (37.0-47.0); Hemoglobin 14.4 g/dL (12.0-15.0); Immature Granulocyte Absolute 0.03 K/mm3 (0.00-0.031); Immature Granulocyte Percent A 0.5 % (0-0.5); Lymphocytes Absolute Auto 1.37 K/mm3 (0.9-3.2); Lymphocytes Percent Auto 22.1 % (18.3-44.2); Mean Corpuscular HGB Conc 32.4 g/dl (32-36); Mean Corpuscular Volume 86.4 fl (80-100); Mean Platelet Volume 9.4 fl (7.4-10.4); Monocytes Absolute Auto 0.5 K/mm3 (0.1-0.6); Monocytes Percent Auto 7.4 % (2.6-8.5); Neutrophils Absolute Auto 4.2 K/mm3 (1.3-6.7); Neutrophils Percent Auto 67.5 % (45.5-73.1); Platelet Count Result 228 k/mm3 (150-375); Red Blood Count 5.14 M/mm3 (4.2-5.4); Red Cell Distribution Width 13.4 % (11.5-14.5); White Blood Count 6.2 K/mm3 (4.5-10.0)
--- OUTSIDE RECORDS SUMMARY | 2024-11-09 09:22 | XMS_ITS | Data Portability ---
Author Organization [facility] Waite Address [address] [place] [address] Care Team Providers Care Fish Hatchery Man Name Role Phone JOSE WILKINS Primary Care Provider Unavailab le Assessment Encounter Date Assessment Date Assessment LastModified by Organization Details LastModified Time 09/30/2023 09/30/2023 DEXA scan december planned Tumor marker lab annually. Mammogram annually at [facility], due end of october. left sided breast cancer 2021, and she had double mastectomy with implants. colonoscopy 2022. dr. taylor, one small polyp. few int hems. 5 year f/u. Not available 09/30/2023 18:05:19 04/13/2024 04/13/2024 DEXA scan december planned Tumor marker lab annually. Mammogram annually at [facility], due end of october. left sided breast cancer 2021, and she had double mastectomy with implants. sees them every 6months the oncologist or breast specialist colonoscopy 2022. dr. taylor, one small polyp. few int hems. 5 year f/u. Not available 04/13/2024 17:25:38 10/12/2024 10/12/2024 DEXA scan december planned Tumor marker lab annually. Mammogram annually at [facility], due end of october. left sided breast cancer 2021, and she had double mastectomy with implants. sees them every 6months the oncologist or breast specialist colonoscopy 2022. dr. taylor, one small polyp. few int hems. 5 year f/u. Not available 10/12/2024 17:40:49 Plan of Treatment Reminders Order Date Submit Date Provider Last Modified By Organization Details Last Modified Time Details Appointments ANY 2024 11:00A M ANNABELLA López Not available Not available Not available ANY 2024 04:15P ANNABELLA Blood Not available Not available Not available Lab HbA1c (hemog lobin A1c), blood 2024 025 [facility] Outpatient Registration Lab/Ekg, [address], [place], [address], 11/09/2024 04:21:48 CMP, serum or plasma 2024 025 [facility] Outpatient Registration Lab/Ekg, [address] [facility] [address], [place], [address], 11/09/2024 04:21:47 CBC w/ auto diff 2024 025 [facility] Outpatient Registration Lab/Ekg, [address] [facility] [address], [place], [address], 11/09/2024 04:21:47 vitami n B12 + folate , serum or blood 2024 025 [facility] Outpatient Registration Lab/Ekg, [address], [place], [address], 11/09/2024 04:21:47 lipid panel, serum 2024 025 [facility] Outpatient Registration Lab/Ekg, [address], [place], [address], 11/09/2024 04:21:48 insuli n, serum 2024 025 [facility] Outpatient Registration Lab/Ekg, [address], [place], [address], 11/09/2024 04:21:48 TSH + free T4, serum 2024 025 [facility] Outpatient Registration Lab/Ekg, [address] [facility] [address], [place], [address], 11/09/2024 04:21:48 insuli n, serum [address] Outpatient Registration Lab/Ekg, [address], [place], [address], 07/27/2024 14:22:04 HbA1c (hemog lobin A1c), blood 2023 024 [facility] Outpatient Registration Lab/Ekg, [facility] [facility] [address], [place], [address], 06/18/2024 17:46:24 CMP, serum or plasma 2023 024 [facility] Outpatient Registration Lab/Ekg, [address] [place] [address] [address], [place], [address], 06/17/2024 12:35:20 CBC w/ auto diff 2023 024 [facility] Outpatient Registration Lab/Ekg, [address] [place] [address] [address], [place], [address], 06/17/2024 12:32:05 vitami n B12 + folate , serum or blood 2023 024 [facility] Outpatient Registration Lab/Ekg, [address], [place], [address], 06/17/2024 12:36:02 TSH + free T4, serum [address] Outpatient Registration Lab/Ekg, [facility], [place], [address], 06/26/2024 09:17:11 lipid panel, serum 2023 024 [facility] Outpatient Registration Lab/Ekg, [facility] [address], [place], [address], 06/17/2024 12:35:48 CMP, serum or plasma 2023 024 [facility] Outpatient Registration Lab/Ekg, [facility], [place], [address], 12/17/2023 13:10:48 CBC w/ auto diff 2023 024 [facility] Outpatient Registration Lab/Ekg, [address] [facility] [address], [place], [address], 12/17/2023 13:08:26 vitami n B12 + folate , serum or blood [address] Outpatient Registration Lab/Ekg, [address] [facility] [address], [place], [address], 03/19/2024 09:03:44 lipid panel, serum 2023 024 [facility] Outpatient Registration Lab/Ekg, [facility] [address], [place], [address], 12/17/2023 13:08:13 insuli n, serum 2023 024 [facility] Outpatient Registration Lab/Ekg, [address] [facility] [address], [place], [address], 12/17/2023 13:09:47 HbA1c (hemog lobin A1c), blood 2023 024 [facility] Outpatient Registration Lab/Ekg, [address] [facility] [address], [place], [address], 12/17/2023 13:08:54 TSH + free T4, serum [address] Outpatient Registration Lab/Ekg, [address], [place], [address], 03/19/2024 09:03:39 Referral None record ed. Procedures None record ed. Surgeries None record ed. Imaging DEXA [address] (Imaging), [facility], [place], [address], 10/12/2024 18:10:20 Medication Orders trazod one 100 mg tablet 2024 025 [email or web address] [facility] [address], [address], [place], [address], 10/12/2024 18:10:20 alpraz olam 0.25 mg tablet 2024 025 [email or web address] [facility] [address], [address], [place], [address], 10/12/2024 18:10:20 Virtus sin AC 10 mg-100 mg/5 mL oral liquid 2024 025 [facility] [address], [address] [facility], [place], [address], 10/12/2024 17:18:51 Zithro max Z-Chavez 250 mg tablet 2024 025 [facility] [address], [address] [facility], [place], [address], 10/12/2024 17:18:38 amoxic illin 875 mg-pot assium clavul anate 125 mg tablet 2024 025 [facility] [address], [address] [facility], [place], [address], 10/12/2024 17:18:32 Medrol (Chavez) 4 mg tablet s in a dose pack 2024 025 [facility] [address], [address] [facility], [place], [address], 10/12/2024 17:18:57 Patient TargetsNo targets recorded. Patient Instructions Encounter Date Encounter Id Patient Instructions Last Modified By Organization Details Last Modified Time 09/30/2023 [id number] A healthy lifestyle: care instructions Not available 09/30/2023 19:15:10 04/13/2024 [id number] A healthy lifestyle: care instructions Not available 04/13/2024 17:31:02 09/17/2024 [id number] A healthy lifestyle: care instructions Not available 09/17/2024 13:16:56 10/12/2024 [id number] A healthy lifestyle: care instructions Not available 10/12/2024 18:10:20 Reason for Referral None Reported. Results Created Date Observation Date Name Description Value Unit Range Abnormal Flag Note LastModifiedBy Organization Detail LastModifiedTime 08/18/1907/31/2024 XR, knee No observ ation record ed. BARCODE Not Available 2024 11:47:18 09/26/19 25 09/25/2024 XR, chest , 2 view No observ ation record ed. [facility] [address], [place], [address], 09/25/2024 13:41:20 Result Notes None recorded. Problems Name Problem SNOMED Code Status Onset Date Resolution Date Notes Provider Name and Address Organization Details Recorded Time Coronary atherosclerosi s 209429311 Active 2023 ANNABELLA López Attn: Kahlil crockett,[address] [facility] [address], [place], [address], [place] 19:14:57 History of placement of stent for coronary artery disease 018601928 Active 2023 ANNABELLA López Attn: Kahlil g,[address] [facility], [place], [address], [place] [facility] 4 19:14:57 History of malignant neoplasm of breast 020892895 Active 2023 ANNABELLA López Attn: Kahlil g,[address] [facility], [place], [address], [place] [facility] 4 19:14:58 Benign essential hypertension 3877458 Active 2023 ANNABELLA López Attn: Kahlil g,[address] [facility], [place], [address], [place] 4 19:15:00 Hypothyroidism 49589445 Active 2023 ANNABELLA López Attn: Accountin g,[address] [facility], [place], [address], [place] [facility] 19:15:01 Hyperlipidemia 42847209 Active 2023 ANNABELLA López Attn: Accountin g,[address] [facility] [address], [place], [address], [place] [facility] 19:15:02 Anxiety 86734009 Active 2023 ANNABELLA López Attn: Accountin g,[address] [facility], [place], [address], [place] [facility] 19:15:04 Long-term drug therapy Active 2023 ANNABELLA López Attn: Accountin g,[address] [facility], [place], [address], [place] [facility] 19:15:05 Obesity 079571196 Active 2023 ANNABELLA López Attn: Accountin g,[address] [facility], [place], [address], [place] [facility] 19:15:07 Body mass index 40+ - severely obese 209501562 Active 2023 ANNABELLA López Attn: Accountin g,[address] [facility], [place], [address], [place] [facility] 19:15:09 Prediabetes 285516843 Active 2023 ANNABELLA López Attn: Accountin g,[address] [facility], [place], [address], [place] [facility] 12:14:15 Benign hypertension 63029868 Active 2024 ANNABELLA López Attn: Accountin g,[address] [facility], [place], [address], [place] [facility] 5 13:17:49 Morbid obesity 252116862 Active 2024 ANNABELLA López Attn: Kahlil crockett,[address] [facility] [address], [place], [address], [facility] - [facility] 13:17:51 Obese class III 583593084 Active 2024 ANNABELLA López Attn: Kahlil g,[address] [facility] [address], [place], [address], [facility] - [place] 17:30:33 Dyssomnia 05188706 Active 2024 ANNABELLA López Attn: Kahlil g,[address] [facility] [address], [place], [address], [facility] - [facility] 08:34:05 Problem Notes None recorded. Procedures Surgical History Date Name Laterality Status Provider Name and Address Organization Details Recorded Time Angioplasty With Stent completed Ama Wade MA [facility] 09/30/2023 17:24:44 Joint Replacement completed Ama Wade MA [facility] 09/30/2023 17:24:51 excision of bilateral fallopian tubes and ovaries completed Ama Wade MA [facility] 09/30/2023 17:25:23 Breast Surgery completed Ama fonseca MA [facility] 09/30/2023 17:25:29 Mastectomy completed Ama Wade MA [facility] 09/30/2023 17:25:38 Total hysterectomy completed Ama Wade [facility] 09/30/2023 17:25:44 Imaging Results None recorded. Procedure Notes None recorded. Medical Equipment None Reported. Allergies No known drug allergies Medications Name Sig Start Date Stop Date Status Note LastModified by Organization Details LastModified Time azithromyci n 250 mg tablet TAKE 2 TABLETS BY MOUTH ON DAY 1, AND THEN TAKE 1 TABLET BY MOUTH ONCE A DAY ON DAY 2 THROUGH DAY 5 10/12 completed Not Available Not Available Not Available benzonatate 200 mg capsule TAKE 1 CAPSULE BY MOUTH THREE TIMES DAILY FOR COUGH 10/12 completed Not Available Not Available Not Available metoprolol succinate ER 100 mg tablet,exte nded release 24 hr TAKE 1 TABLET BY MOUTH ONCE DAILY active Not Available Not Available No t Available ciprofloxac in 500 mg tablet Take 1 tablet every 12 hours by oral route. 2024 active Not Available Not Available Not Avai lable meloxicam 7.5 mg tablet TAKE 1 TABLET BY MOUTH ONCE DAILY NEEDED 2024 active Not Available Not Available Not Avai lable alprazolam 0.25 mg tablet TAKE 1 TABLET BY MOUTH ONCE DAILY NEEDED active Not Available Not Available No t Available famotidine 20 mg tablet Take 1 tablet as needed by oral route for 30 days. active Not Available Not Available No t Available trazodone 100 mg tablet TAKE 1 TABLET BY MOUTH AT BEDTIME NEEDED active Not Available Not Available No t Available dicyclomine 20 mg tablet Take 1 tablet as needed by oral route for 10 days. 10/12 completed Not Available Not Available Not Available codeine 10 mg-guaifene sin 100 mg/5 mL oral liquid TAKE 10 ML BY MOUTH EVERY 4 TO 6 HOURS NEEDED 10/12 completed Not Available Not Available Not Available hydrochloro thiazide 25 mg tablet TAKE [...] BY MOUTH DIRECTED ON INSIDE OF PACKAGE 10/12 completed Not Available Not Available Not Available ondansetron 4 mg disintegrat ing tablet [...] 1 TABLET BY MOUTH EVERY 12 HOURS 10/12 completed Not Available Not Available Not Available Asprin Ec Low Dose 81 mg tablet,andres yed release Take 1 tablet every day by oral route. active otc Not Available Not Available No t Available rosuvastati n 10 mg tablet TAKE 1 TABLET BY MOUTH ONCE DAILY active Not Available Not Available No t Available Contrave 8 mg-90 mg tablet,exte nded release 2 tabs po bid. 2024 active Not Available Not Available Not Avai lable Vitals Date Recorded Respiratory rate Body temperature Systolic blood pressure Diastolic blood pressure Provider Name and Address Organization Details Last Updated DateTime 09/17/2024 16 /min 98.3 [degF] 160 mm[Hg] 80 mm[Hg] ANNABELLA López Attn: Joslynin g,[address] [place], [address], [facility] 13:17:05 Date Recorded Body height Body mass index (BMI) Body weight Oxygen saturation Oxygen saturation in Arterial blood by Pulse oximetry Heart rate Systolic blood pressure Diastolic blood pressure Provider Name and Address Organization Details Last Updated DateTime 154.94 cm 41.4 kg/m2 57754.7 3 g 98 % 98 % 78 /min 170 mm[Hg] 88 mm[Hg] Hussain Ortega MA [facility] 13:00:03 Date Recorded Respiratory rate Provider Name a mi Address Organization Details Last Updated DateTime 09/30/2023 16 /min ANNABELLA López Attn: Accounting,[address] [place], [address], [facility] 09/30/2023 19:10:47 Date Recorded Body weight Body mass index (BMI) Body height Heart rate Oxygen saturation Oxygen saturation in Arterial blood by Pulse oximetry Systolic blood pressure Diastolic blood pressure Provider Name and Address Organization Details Last Updated DateTime 357630. 71 g 42.5 kg/m2 154.94 cm 65 /min 98 % 98 % 150 mm[Hg] 68 mm[Hg] Ama Wade MA [facility] 17:29:14 Date Recorded Systolic blood pressure Diastolic blood pressure Provider Name and Address Organization Details Last Updated DateTime 10/12/2024 150 mm[Hg] 80 mm[Hg] ANNABELLA López Attn: Accounting,[address] [place], [address], [facility] 10/12/2024 17:48:40 Date Recorded Body height Body mass index (BMI) Body weight Oxygen saturation Oxygen saturation in Arterial blood by Pulse oximetry Heart rate Systolic blood pressure Diastolic blood pressure Provider Name and Address Organization Details Last Updated DateTime 5 154.94 cm 41.2 kg/m2 00315.1 4 g 97 % 97 % 81 /min 160 mm[Hg] 82 mm[Hg] Hussain Ortega MA [facility] 5 17:19:19 Date Recorded Heart rate Systolic blood pressure Diastolic blood pressure Provider Name and Address Organization Details Last Updated DateTime 04/13/2024 80 /min 150 mm[Hg] 90 mm[Hg] ANNABELLA López Attn: Accounting,[address] [facility], [place], [address], [facility] 04/13/2024 17:37:48 Date Recorded Body height Body mass index (BMI) Body weight Respiratory rate Systolic blood pressure Diastolic blood pressure Provider Name and Address Organization Details Last Updated DateTime 4 154.94 cm 41.8 kg/m2 783029. 91 g 18 /min 140 mm[Hg] 80 mm[Hg] Hussain Ortega MA [facility] 4 17:12:12 Social History Question Answer Notes LastModified by Organizat ion Details LastModified Time Tobacco Smoking Status Never Smoker Ama Wade MA [facility], [facility] 09/30/2023 17:21:58 Do You Have An Advance Directive? Yes Living Will Information not available 09/30/2023 Are You Blind [...] No Information not available 09/30/2023 Are You Deaf Or Do You Have Serious Difficulty Hearing? No Information not available 09/30/2023 What Type Of Diet Are You Following? REGULAR Information not available 09/30/2023 Are There Any Guns Present In Your Home? Yes Information not available 09/30/2023 What Was The Date Of Your Most Recent Tobacco Screening? 10/12/2024 [email or web address] Information not available 10/12/2024 What Is Your Relationship Status? Information not available 09/30/2023 Do You Use Your Seat Belt Or Car Seat Routinely? Yes Information not available 09/30/2023 Do You Have Smoke And Carbon Monoxide Detectors In Your Home? Yes Information not available 09/30/2023 Do You Use Sunscreen Routinely? Yes Information not available 09/30/2023 Has Tobacco Cessation Counseling Been Provided? No Information not available 09/30/2023 Sex: Female Functional Status Question Answer Note LastModified by Organizat ion Details LastModified Time Do you use any illicit or recreational drugs? No Information not available 09/30/2023 Do you or have you ever used any other forms of tobacco or nicotine? No Information not available 09/30/2023 What is your level of alcohol consumption? Occasional 2 to 3 beers a week Information not available 09/30/2023 Are you currently employed? Yes Information not available 09/30/2023 Are you able to care for yourself? 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 Occasional Information not available 09/30/2023 Mental Status Question Answer Note LastModified by Organization D etails LastModified Time Do you feel stressed (tense, restless, nervous, or anxious, or unable to sleep at night)? [id number] Information not available 09/30/2023 Family History Relationship Description Onset Age of [...] Joint, or Bone Problems Y Heart Attack (LA) Y High Blood Pressure Y Cancer Y Thyroid Problems Y Gynecological History Statement/Question Response Menses Monthly N If Post Menopausal, Age at Menopause Obstetrics History GPAL:G 2 P 2 0 0 2 Type Value Full Term 2 Living 2 Total 2 Past Encounters Encounter ID Performer Location Encounter Start Date Encounter Closed Date Diagnosis/Indication Diagnosis SNOMED-CT Code Diagnosis ICD10 Code Diagnosis Note [id number] Raji Schuler MD [facility] [address] [place] [address] 09/30/2023 17:12:12 09/30/2023 18:31:35 Coronary atherosclerosis 663764763 I25.[address] blanc. History of placement of stent for coronary artery disease 634715171 Z95.5 x 1 stent in 3rd OM History of malignant neoplasm of breast 588819706 Z85.3 On letrozole x 5 years plan. follows with oncology routinely. Benign ess ential hypertension 7753268 I10 boost to metoprolol ER 100mg full tablet. BP elevated today. must lower witih CAD hx. Hypothyroidism 07742204 E03.9 stable on levothyrox ine 100mcg daily. thyroid panel due Hyperlipidemia 20563295 E78.5 stable on crestor 10mg daily. fasting lipids due Long-term drug therapy 063604647 Z79.899 routine cmp, cbc,. and b12, folate due Diabetes m ellitus screening 612458634 Z13.1 a1c screening due Anxiety 57255379 F41.9 stable. pt will reach out should she decide to start medication therapy. Body mass index 40+ - severely obese 212093288 Z68.41 discussed healthy diet, exercise, controllin g carbohydra pelon and added sugars in the diet Obesity 034731824 E66.9 discussed healthy diet, exercise, controllin g carbohydra pelon and added sugars in the diet [id number] Raji Schuler MD [facility] [employer] [address] [place] [address] 04/13/2024 16:42:02 04/14/2024 10:16:51 Coronary atherosclerosis 216664254 I25.[address] blanc. All looked fine from cardio, seeing them again in september. History of placement of stent for coronary artery disease 965650585 Z95.5 x 1 stent in 3rd OM History of malignant neoplasm of breast 769729688 Z85.3 On letrozole x 5 years plan. follows with oncology routinely. Benign ess ential hypertension 0202413 I10 metoprolol ER 100mg full tablet. BP elevated today. must lower witih CAD hx. Hypothyroidism 65357997 E03.9 stable on levothyrox ine 100mcg daily. thyroid panel due Hyperlipidemia 42367069 E78.5 stable on crestor 10mg daily. fasting lipids due Anxiety 83949981 F41.9 Anxiety is stable at this time with no requests for any medication Long-term drug therapy 217154474 Z79.899 routine cmp, cbc,. and b12, folate due Body mass index 40+ - severely obese 293824844 Z68.41 History of elevated insulin at 47.7 on previous labs, she is due for updated lab Obesity 196072972 E66.9 discussed healthy diet, exercise, controllin g carbohydra pelon and added sugars in the diet Prediabetes 968397131 R7 3.03 5.8% A1c with a fasting glucose elevated on November labs. She is due for an updated A1c [id number] Raji Schuler MD [facility] [employer] [address] [place] [address] 09/17/2024 12:19:42 09/17/2024 13:24:50 Body mass index 40+ - severely obese 773645305 Z68.41 BMI 41.4 Morbid obesity 712945087 E66.01 Acute uppe r respiratory infection 54813653 J06.9 Start Z-Chavez and Augmentin therapy as directed broad-spec trum coverage for any possible atypical pneumonia and/or a bronchitis only presentati on. Start Medrol Dosepak therapy as well Acute cough 6959602108 53322975 R05.1 For Peterclydealex MONTES as directed for cough suppressio n Benign hypertension 1072 5009 I10 metoprolol ER 100mg full tablet. BP elevated today. must lower witih CAD hx. she has had cough and cold agents on board. she has been coughing in exam room and BP is up secondary to that. [id number] Raji Schuler MD [facility] [address] [place] [address] 10/12/2024 17:11:31 10/12/2024 17:49:15 Body mass index 40+ - severely obese 652776793 Z68.41 BMI 41.2 fasting insulin lap due, on Contrave therapy Obese class III 61988448 5 E66.813 discussed healthy diet, exercise, controllin g carbohydra pelon and added sugars in the diet Coronary atherosclerosis 373912408 I25.[address] blanc. All looked fine from cardio, seeing them yearly History of placement of stent for coronary artery disease 664250025 Z95.5 x 1 stent in 3rd OM History of malignant neoplasm of breast 248780972 Z85.3 On letrozole x 5 years plan. follows with oncology routinely. Benign ess ential hypertension 3337184 I10 metoprolol ER 100mg full tablet. BP elevated today. must lower witih CAD hx. Prediabetes 209799153 R7 3.03 6.1% following A1c Hypothyroidism 07443760 E03.9 stable on levothyrox ine 100mcg daily. thyroid panel due Hyperlipidemia 95002099 E78.5 stable on crestor 10mg daily. fasting lipids due Anxiety 71586975 F41.9 Anxiety is stable at this time with no requests for any medication Long-term drug therapy 822599946 Z79.899 routine cmp, cbc,. and b12, folate due Adult heal th examination 255835429 Z00.00 Annual wellness exam completed Screening for osteoporosis 109999553 Z13.820 Due for DEXA screening Dyssomnia 35660490 G47.9 Trial of trazodone 100 mg at night Health Concerns Section Related Observation LastModified by Organization Detai ls LastModified Time None Recorded Concern Status LastModified by Organization Details LastModified Time None Recorded Advance Directives Directive Y: Living will Payers Encounter Date Sequence Insurance Name Policy Number Policy Calderón Covered Member ID Calderón Member ID Guarantor Name 09/30/2023 1 [facility] [facility]) [id number] Autumn Hwang-Streeb [id number] Autumn Hwang Streeb 04/13/2024 1 [facility] ([facility]) [id number] Autumn Fernandezim-Streeb [id number] Autumn Hwang Streeb 09/17/2024 1 [facility] ([facility]) [id number] Autumn Jaiden-Streeb [id number] Autumn Hwang Streeb 10/12/2024 1 [facility] ([facility]) [id number] Autumn Fernandezim-Streeb [id number] Autumn Hwang Streeb Notes Date Note Type Note Provider Name [...] rushed around to get here and stressful dayThyroidReported bypatient.Notes:stable on thyroid supplement. due for labs. Hx of breast cancer. on letrozole. follows with oncology routinely ANNABELLA López Attn: Accounting,[address] [place], [address], [facility] 09/30/2023 19:15:30 4 text/htm l Anxiety/DepressionReported bypatient.Notes:Anxiety [...] rushed around to get here and stressful dayThyroidReported bypatient.Notes:stable on thyroid supplement. due for labs. Hx of breast cancer. on letrozole. follows with oncology routinely ANNABELLA óLpez Attn: Accounting,[address] [facility], [place], [address], [facility] 05/01/2024 12:15:09 5 text/htm l Upper Respiratory SymptomsReported bypatient.Location:head; chest Quality:dry cough Severity:moderate Duration:onset within the last week Onset/Timing:sudden Context:no sick contacts Modifying Factors:OTC medication Associated Symptoms:fatigue;sore throatNotes:Pt states that her sx started Saturday w Dry cough, muscle soreness, sore throat states that she feels as ifs from the coughing, states that her chest does feel heavyPt states thats she has tested for Covid neg, no flu testing has been done ANNABELLA López Attn: Accounting,[address] [facility] [facility], [place], [address], [facility] 10/04/2024 18:41:49 5 text/htm l Anxiety/DepressionReported bypatient.Notes:Anxiety has been higher [...] rushed around to get here and stressful dayThyroidReported bypatient.Notes:stable on thyroid supplement. due for labs. Hx of breast cancer. on letrozole. follows with oncology routinely Patient noticing some restless sleep and insomnia interested in treatment ANNABELLA López Attn: Accounting,[address] [facility], [place], [address], [facility] 10/30/2024 08:34:39 OBGyn Episode No OBEpisode recorded.
--- OUTSIDE RECORDS SUMMARY | 2024-11-09 09:22 | XMS_ITS | Referral Summary ---
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
--- OUTSIDE RECORDS SUMMARY | 2024-11-09 09:22 | XMS_ITS | Continuity of Care Document ---
Author Organization [facility] Address [address] [place] [address] Phone Care Team Providers Care Telegraph Mechanic Name Role Phone Curry OD, Lamont Unavailable Unavailable Advance Directives Directive Yes / No Effective Date File Name No Information Encounters Encounter Description Practice Location Reason(s) For Visit Diagnoses Date Provider Providers Copied on Encounter [facility], [address], [place], [place], [address], [place] tel:[phone] [facility] No Information 0 4-200 1 Curry OD Lamont. [address] , [address], [place], [address], [place]. tel:[phone] Family History Family Member Type Diagnosis Age At Onset No Information Payers Payer name Insurance type Covered republican ID Authoriza tion(s) No Information Social History [...]
--- OUTSIDE RECORDS SUMMARY | 2024-11-09 09:22 | XMS_ITS | Data Portability ---
Author Organization [facility] Chance ([facility]), Main Office Address [address] [place] [address] Assessment No assessment recorded. Plan of Treatment Reminders Order Date Submit Date Provider Last Modified By Organization Details Last Modified Time Details Appointments None recorded . Lab HbA1c (hemoglo bin A1c), blood 023 01/01/20 [facility] (Lab), [address] [place] [address], [phone], 3 09:13:09 CMP, serum or plasma 023 01/01/20 23 [facility] (Lab), [address] [place] [address], [phone], 3 16:08:23 CBC w/ auto diff 023 01/01/[address] (Lab), [address] [place] [address], [phone], 3 17:50:49 lipid panel, serum 023 01/01/[address] (Lab), [address] [facility] [address] [place] [address], [phone], 3 17:50:38 T3, free, serum or plasma 023 01/01/20 23 [facility] (Lab), [facility] [address], [address], 3 08:58:12 T4, free, serum 023 01/01/20 23 [email or web address] [facility] (Lab), [address] [facility] [address], [place], [address], 3 09:15:35 TSH, serum or plasma 023 01/01/20 23 [email or web address] 4 [facility] (Lab), [address] [facility] [address], [place], [address], 4 09:50:33 Referral None recorded . Procedures [...] eral No observ ation record ed. MIGRATION. [id number] Not Available 08/01/2022 01:21:13 06/23/19 22 06/23/2021 MAMMO , diagn ostic , digit al, unila teral No observ ation record ed. MIGRATION. [facility] (Mammography) [address], [place], [address], 08/01/2022 01:21:13 08/30/19 22 08/02/2021 stere otact ic breas t biops y (PROC ) No observ ation record ed. MIGRATION. Amanda Jaramillo [address], [place], [address], 08/01/2022 01:21:13 09/06/19 22 08/30/2021 imagi ng/di agnos tic resul t No observ ation record ed. MIGRATION. Not Available 08/01/2022 01:21:13 05/10/20 23 05/10/2023 colon oscop y scree maría (PROC ) No observ ation record ed. [email or web address] Not Available 2023 10:16:18 06/13/19 24 03/15/2023 XR, knee No observ ation record ed. [email or web address] Not Available 06/13 15:47:02 Result Notes None recorded. Problems Name Problem SNOMED Code Status Onset Date Resolution Date Notes Provider Name and Address Organization Details Recorded Time Benign hypertension 92944498 Active Not Available [facility] 3 01:12:04 Osteoarthriti s of knee 649531477 Active Not Available [facility] 3 01:12:04 Malignant tumor of breast 424677157 Active 2021 Not Available [facility] 3 01:12:04 Hypothyroidis m 25545164 Active Not Available [facility] 3 01:12:04 Obesity 487947548 Active Not Available [facility] 3 01:12:04 Coronary atheroscleros is 246384135 Active 2021 Not Available [facility] 3 01:12:04 Coronary arteriosclero sis 30956653 Active 2019 Not Available [facility] 3 01:12:04 Hyperlipidemi a 99531628 Active 2021 Not Available [facility] 3 01:12:05 Otitis media 95118870 Active 2021 Not Available [facility] 3 01:12:05 Pain in limb 02178112 Active Not Available [facility] 3 01:12:05 Impaired glucose tolerance 9527308 Active 2022 Not Available [facility] 3 01:12:05 Problem Notes None recorded. Procedures Surgical History Date Name Laterality Status Provider Name and Address Organization Details Recorded Time 05/17/20 20 Knee Replacement completed Not Available [facility] 06/2022 01:05:31 05/18/20 16 Date of Last Colonoscopy completed Not Available [facility] 08/01/2022 01:05:27 06/03/19 13 Thyroid Surgery completed Not Available [facility] 0306/2022 01:05:31 06/03/19 10 Hysterectomy completed Not Available [facility] 023 01:05:31 06/03/18 95 Tubal Ligation completed Not Available [facility] 08/01 01:05:31 Stent completed Not Available [facility] 06/2022 01:05:31 Breast Surgery completed Not Available Pending sale to [facility] 08/01/2022 01:05:31 Imaging Results None recorded. Procedure Notes None [...] % 72 /min 16 /min 96.4 [degF] 41964.3 2 g 122 mm[Hg] 78 mm[Hg] Not Available [facility] 3 01:08:38 Date Recorded Body mass index [...] % 79 /min 16 /min 98 [degF] 57341.1 4 g 142 mm[Hg] 84 mm[Hg] 130 mm[Hg] 82 mm[Hg] Not Available [facility] 3 01:08:38 Date Recorded Body mass index (BMI) Body height Oxygen saturation Oxygen saturation in Arterial blood by Pulse oximetry Heart rate Respiratory rate Body temperature Body weight Systolic blood pressure Diastolic blood pressure Provider Name and Address Organization Details Last Updated DateTime 2 42.6 kg/m2 154.94 cm 98 % 98 % 71 /min 16 /min 97.5 [degF] 531361 g 138 mm[Hg] 82 mm[Hg] Not Available [facility] 3 01:08:38 Date Recorded Systolic blood pressure Diastolic blood pressure Provider Name and Address Organization Details Last Updated DateTime 12/31/2022 130 mm[Hg] 82 mm[Hg] ANNABELLA López [address] [facility], [place] [address], [place], [address], [facility] 12/31/2022 17:58:48 Date Recorded Body height Body temperature Body mass index (BMI) Body weight Respiratory rate Oxygen saturation Oxygen saturation in Arterial blood by Pulse oximetry Heart rate Systolic blood pressure Diastolic blood pressure Provider Name and Address Organization Details Last Updated DateTime 3 154.94 cm 97.2 [degF] 50.4 kg/m2 045218. 37 g 16 /min 97 % 97 % 77 /min 142 mm[Hg] 88 mm[Hg] HERNANDO Del Cid [facility] 3 17:09:27 Date Recorded Body mass index (BMI) Body height Oxygen saturation Oxygen saturation in Arterial blood by Pulse oximetry Heart rate Body temperature Body weight Systolic blood pressure Diastolic blood pressure Provider Name and Address Organization Details Last Updated DateTime 1 41.3 kg/m2 154.94 cm 97 % 97 % 87 /min 97.3 [degF] 44440.2 9 g 130 mm[Hg] 80 mm[Hg] Not Available [facility] 3 01:08:38 Social History Question Answer Notes LastModified by Organizat ion Details LastModified Time Tobacco Smoking Status Never Smoker HERNANDO Del Cid, [facility] ([facility]) 12/31/2022 17:04:06 What Is Your Level Of Caffeine Consumption? Moderate 1 Cup Daily [id number] Information not available 08/01/2022 How Much Tobacco Do You Chew? None [id number] Information not available 08/01/2022 In The 14 Days Before Symptom Onset, Have You Had Close Contact With A Laboratory-confir med COVID-19 While That Case Was Ill? No [email or web address] Information not available 12/31/2022 In The 14 Days Before Symptom Onset, Have You Had Close Contact With A Person Who Is Under Investigation For COVID-19 While That Person Was Ill? No [email or web address] Information not available 12/31/2022 What Type Of Diet Are You Following? REGULAR [id number] Information not available 08/01/2022 Have There Been Any Changes To Your Family Or Social Situation? No [email or web address] Information no t available 12/31/2022 Are There Any Guns Present In Your Home? No [email or web address] Information not available 12/31/2022 Do You Use Insect Repellent Routinely? No [email or web address] Information not available 12/31/2022 What Was The Date Of Your Most Recent Tobacco Screening? 08/08/2020 [email or web address] Information not available 12/31/2022 What Is Your Relationship Status? [id number] Information not available 08/01/2022 Do You Use Your Seat Belt Or Car Seat Routinely? Yes Information not available 12/31/2022 Do You Have Smoke And Carbon Monoxide Detectors In Your Home? Yes [email or web address] Information not available 12/31/2022 Are You Passively Exposed To Smoke? No [email or web address] Information no t available 12/31/2022 How Much Tobacco Do You Smoke? No [id number] Information not available 08/01/2022 Do You Use Sunscreen Routinely? Yes [email or web address] Information not available 12/31/2022 How Many Years Have You Smoked Tobacco? 0 [email or web address] Information not available 12/31/2022 Have You Recently Traveled Abroad? No [email or web address] Information not available 12/31/2022 Do You Have Any Dietary Restrictions? No [email or web address] Information not available 12/31/2022 Sex: Unknown Functional Status Question Answer Note LastModified by Organizat ion Details LastModified Time Do you use any illicit or recreational drugs? No [email or web address] Information not available 12/31/2022 Do you or have you ever used any other forms of tobacco or nicotine? No [email or web address] Information not available 12/31/2022 What is your level of alcohol consumption? Occasional [id number] Information not available 08/01/2022 Do you or have you ever used smokeless tobacco? Never used smokeless tobacco MIGRATION.[id number] Information not available 08/01/2022 Are you currently employed? Yes [email or web address] Information not available 12/31/2022 What is your occupation? Registered nurses Information not available 12/31/2022 Do you or have you ever used e-cigarettes or vape? Never used electronic cigarettes [email or web address] Information not available 12/31/2022 What is your exercise level? Moderate [id number] Information not available 08/01/2022 Mental Status None recorded. Family History Relationship Description Onset Age of this Age Resolved Age Notes LastModified by Organization Details LastModified Time Mother Diabetes mellitus [id number] Not available 08/01/2022 01:05:34 Mother Malignant neoplasm of uterus [email or web address] Not available 12/31 17:04:02 Mother Malignant tumor of breast [email or web address] Not available 12/31 17:04:02 Mother Malignant tumor of colon [email or web address] Not available 12/31 17:04:02 Medical History Condition Response NERVE DISEASE N BLINDNESS N RHEUMATIC FEVER N KIDNEY STONES N BLADDER PROBLEMS N OTHER # 1 N POLIO N [...] ARTERY DISEASE (CAD) N ADDICTION CONCERNS N Impotence N ENDOMETRIOSIS N USE OF BLOOD THINNERS N SKIN [...] APNEA N CHICKENPOX N INFECTIOUS DISEASE N PROSTATE N HEART ARRHYTHMIA N INSOMNIA N HIGH CHOLESTEROL / HYPERLIPIDEMIA Y HYPERTHYROIDISM N EYE PROBLEMS Y NEUROLOGICAL PROBLEMS N EDEMA N CHRONIC PAIN SYNDROME N HYPOTHYROIDISM N CONSTIPATION N CAROTID BLOCKAGE N BACK / NECK PROBLEMS N HAVE YOU BEEN HOSPITALIZED OR SEEN IN [facility] IN THE PAST YEAR ? N ATHEROSCLEROSIS [...] Brain Problems N HERPES N DEMENTIA N SEIZURES/EPILEPSY N HEADACHES/MIGRAINES N VASCULAR DISEASE N PACEMAKER N Blood Disorder N DIZZINESS N KIDNEY DISEASE N HEART DISEASE/HEART PROBLEMS N MULTIPLE SCLEROSIS N CARDIAC ARRHYTHMIA N CANCER: SPECIFY N ANESTHESIA COMPLICATIONS N Gall Stones N ATRIAL FIBRILLATION N PULMONARY EMBOLISM N AUTOIMMUNE DISEASE N Gynecological History Statement/Question Response Date of Last Mammogram 05/06/2020 Date of Last Colonoscopy 05/18/2016 Obstetrics History GPAL:G 6 P 0 0 0 2 Type Value Living 2 Total 6 Immunizations Vaccine Type Date Status Note Provider Nam e and Address Organization Details Recorded Time COVID-19, mRNA, LNP-S, PF, 30 mcg/0.3 mL dose 1 completed Not Available [facility] 08/01/2022 01:20:26 COVID-19, mRNA, LNP-S, PF, 30 mcg/0.3 mL dose 1 completed Not Available [facility] 08/01/2022 01:20:27 influenza, unspecified formulation 5 completed Not Available [facility] 08/01/2022 01:20:27 Past Encounters Encounter ID Performer Location Encounter Start Date Encounter Closed Date Diagnosis/Indication Diagnosis SNOMED-CT Code Diagnosis ICD10 Code Diagnosis Note [id number] ANNABELLA López [facility] [place] [address] [place] [address] 08/08/2020 00:00:00 08/28/2020 11:55:25 [id number] ANNABELLA López [facility] [place] [address] [place] [address] 03/07/2021 00:00:00 03/30/2021 23:42:47 [id number] Raji Schuler MD [facility] Internal [facility] [place] [address] [place] [address] 12/26/2021 00:00:00 12/29/2021 11:09:24 [id number] ANNABELLA López [facility] Internal Med [place] [address] [place] [address] 07/02/2022 00:00:00 07/03/2022 10:20:16 [id number] ANNABELLA López [facility] Internal Med [place] [address] [place] [address] 12/31/2022 17:03:54 12/31/2022 17:38:22 Adult health examination 815302470 Z00.00 well exam completed. labs are due. she didn't get them completed prior to appt Coronary atherosclerosis 212353711 I25.10 stable. no chest pain, sob or mari Impaired g lucose tolerance 1580662 R73.03 due for a1c. Hyperlipidemia 95123723 E78.5 on statin therapy. fasting lipids due Benign hypertension 1072 5009 I10 stable on medication s Hypothyroidism 84906249 E03.9 stable on supplement Osteoarthr itis of knee 988772324 M17.9 no acute changes. Body mass index 40+ - severely obese 567057331 Z68.43 Long-term drug therapy 322155863 Z79.899 Health Concerns Section Related Observation LastModified by Organization Detai ls LastModified Time None Recorded Concern Status LastModified by Organization Details LastModified Time None Recorded Advance Directives Directive None Recorded Payers Encounter Date Sequence Insurance Name Policy Number Policy Calderón Covered Member ID Calderón Member ID Guarantor Name 12/31/2022 1 [id number] Autumn Garza [id number] Autumn Garza Notes Date Note Type Note [...] check-up Treatment:taking medication as directed Not Available [facility] 08/28/2020 11:55:25 03/07/20 21 text/ht ml Coronary [...] skin changes; no hair changes Not Available [facility] 03/30/2021 23:42:47 12/27/19 22 text/ht ml Coronary [...] skin changes; no hair changes Not Available [facility] [employer] [facility] 12/29/2021 11:09:24 07/02/19 23 text/ht [...] skin changes; no hair changes Not Available [facility] [employer] 07/03/2022 10:20:16 01/01/20 23 text/ht ml Coronary [...] skin changes;fatigue;hair changes Wellness ANNABELLA López [address], [address], [place] - [facility] 12/31/2022 18:00:39 OBGyn Episode No OBEpisode recorded.
--- OUTSIDE RECORDS SUMMARY | 2024-11-09 09:22 | XMS_ITS | Clinical Summary ---
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
[2024-11-09 09:47] LABS: Alanine Aminotransferase 31 U/L (6-35); Albumin Level 4.3 g/dL (3.5-5.1); Alkaline Phosphatase 74 U/L (38-126); Anion Gap 8 mmol/L (4-12); Aspartate Amino Transferase 32 U/L (14-36); Bilirubin,Total 0.6 mg/dL (0.2-1.3); Blood Urea Nitrogen 15 mg/dL (7-17); Calcium 9.6 mg/dL (8.4-10.2); Carbon Dioxide 27 mmol/L (22-30); Chloride 105 mmol/L (98-107); Cholesterol 120 mg/dL (0-200); Estimated Glomerular Filt Rate > 60; Glucose 115 mg/dL (65-110); HDL Direct 40 mg/dL; Potassium 3.7 mmol/L (3.4-5.0); Sodium 140 mmol/L (137-145); Total Protein 7.1 g/dL (6.3-8.2); Triglycerides 80 mg/dL (<150)
[2024-11-09 09:57] LABS: LDL Cholesterol Direct 56 mg/dL
[2024-11-09 09:59] LABS: Hemoglobin A1C 5.9 % (<5.7)
[2024-11-09 10:04] LABS: Free T4 Free Thyroxine 1.17 ng/dL (0.78-2.19)
[2024-11-09 10:17] LABS: Thyroid Stimulating Hormone 0.063 uIU/mL (0.465-4.680)
[2024-11-09 10:53] LABS: Folic Acid 16.9 ng/mL (2.76->20)
== END 2024-11-09 08:45 | disposition home or self-care (01) ==
PROVIDERS: PCP Physician Assistant; Visit Provider Physician Assistant
DX: R73.03 Prediabetes (principal); E03.9 Hypothyroidism, unspecified; E78.5 Hyperlipidemia, unspecified; Z68.41 Body mass index [BMI] 40.0-44.9, adult; Z79.899 Other long term (current) drug therapy
CPT/HCPCS: 36415; 80053; 80061; 82607; 82746; 83036; 83525; 84439; 84443; 85025

== ENCOUNTER 2024-11-09 11:55 | Outpatient (CLI) | payer OTHER, SELFPAY ==
--- NOTE | ~2024-11-09 | DEXA_ITS ---
Bone Density Report Name: MATT ALBARRAN Age: 64 Sex: Female Ethnicity: White Date of : 1960 Indication: postmenopausal; screening for osteoporosis; Referring Provider: CLAUDETTE, JOSE Study: Bone densitometry was performed. Exam Date: November 09, 2024 Accession number: [id number] Bone Density: Region BMD T-score Z-score Classification AP Spine(L1-L4) 1.155 1.0 2.6 Normal Femoral Neck (Left) 0.851 0.0 1.4 Normal Total Hip (Left) 1.127 1.5 2.6 Normal Femoral Neck (Right) 0.869 0.2 1.6 Normal Total Hip (Right) 1.170 1.9 3.0 Normal Femoral Neck Mean 0.860 0.1 1.5 Normal Total Hip Mean 1.149 1.7 2.8 Normal World Health Organization criteria for BMD impression classify patients as: Normal (T-score at or above -1.0), Osteopenia (T-score between -1.0 and -2.5), or Osteoporosis (T-score at or below -2.5). 10-year Fracture Risk: FRAX not reported because: All T-scores for Spine Total, Hip Total, Femoral Neck at or above -1.0 Impression: The patient has normal bone mass. Discussion: BONE DENSITY IS ABOVE THE MINIMUM DESIRABLE LEVEL AT ALL SKELETAL SITES TESTED. This patient?s bone mineral density is above the minimum desirable level (T-score -1.0 or better) at all sites measured. The patient should follow a healthful lifestyle (good nutrition with adequate calcium and vitamin D, and appropriate weight-bearing exercise). Follow-Up: Consider repeating this study in 5 years or sooner if there is some new clinical indication. Reported by: DOM on 11/09/2024 12:26:00 PM. Reviewed, dictated and finalized at location A.
--- OUTSIDE RECORDS SUMMARY | 2024-11-09 13:21 | XMS_ITS | Continuity of Care Document ---
Author Organization [facility] Address [address] [place] [address] Phone Care Team Providers Care Chemist Biological Name Role Phone Curry OD, Lamont Unavailable Unavailable Advance Directives Directive Yes / No Effective Date File Name No Information Encounters Encounter Description Practice Location Reason(s) For Visit Diagnoses Date Provider Providers Copied on Encounter [facility], [address], [place], [place], [address], [place] tel:[phone] [facility] No Information 0 4-200 1 Curry OD [place]. [address], [place], [address], [place]. tel:[phone] Family History Family Member Type Diagnosis Age [...]
--- OUTSIDE RECORDS SUMMARY | 2024-11-09 13:21 | XMS_ITS | Referral Summary ---
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
--- OUTSIDE RECORDS SUMMARY | 2024-11-09 13:21 | XMS_ITS | Clinical Summary ---
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
== END 2024-11-09 11:56 | disposition home or self-care (01) ==
LOC: CHSIMG 11:58
PROVIDERS: PCP Physician Assistant; Visit Provider Physician Assistant
DX: Z78.0 Asymptomatic menopausal state (principal)
CPT/HCPCS: 77080

== ENCOUNTER 2025-04-28 07:05 | Outpatient (CLI) | payer OTHER, SELFPAY ==
[2025-04-28 07:57] LABS: Hematocrit 42.6 % (37.0-47.0); Hemoglobin 14.3 g/dL (12.0-15.0); Immature Granulocyte Percent A 0.4 % (0-0.5); Lymphocytes Absolute Auto 1.44 K/mm3 (0.9-3.2); Mean Corpuscular HGB Conc 33.6 g/dl (32-36); Mean Corpuscular Hemoglobin 28.4 pg (26-34); Mean Corpuscular Volume 84.7 fl (80-100); Nucleated Red Blood Cells Absolute Auto 0.000 K/mm3 (0.0-0.012); Nucleated Red Blood Cells Perc 0.0 % (0.0-0.2); Platelet Count Result 233 k/mm3 (150-375); Red Blood Count 5.03 M/mm3 (4.2-5.4); White Blood Count 4.9 K/mm3 (4.5-10.0)
[2025-04-28 09:16] LABS: MALB Creatinine Ratio 21.8 mg/g (0-30); Thyroid Stimulating Hormone Reflex 0.734 uIU/mL (0.465-4.68)
[2025-04-28 12:16] LABS: Alanine Aminotransferase 31 U/L (6-35); Albumin Level 4.2 g/dL (3.5-5.1); Alkaline Phosphatase 73 U/L (38-126); Anion Gap 3 mmol/L (4-12); Aspartate Amino Transferase 28 U/L (14-36); Bilirubin,Total 0.5 mg/dL (0.2-1.3); Blood Urea Nitrogen 17 mg/dL (7-17); Calcium 9.3 mg/dL (8.4-10.2); Carbon Dioxide 29 mmol/L (22-30); Chloride 106 mmol/L (98-107); Estimated Glomerular Filt Rate > 60; Glucose 111 mg/dL (65-110); Potassium 4.1 mmol/L (3.4-5.0); Sodium 138 mmol/L (137-145); Total Protein 7.0 g/dL (6.3-8.2)
[2025-04-29 18:21] LABS: Hemoglobin A1C 6.0 % (<5.7)
[2025-04-30 14:43] LABS: Vitamin B12 263.0 pg/mL (239-931)
== END 2025-04-28 07:06 | disposition home or self-care (01) ==
LOC: ANHLAB 07:10
PROVIDERS: PCP Physician Assistant; Visit Provider Family Medicine
DX: E66.813 Obesity, class 3 (principal); Z68.41 Body mass index [BMI] 40.0-44.9, adult; I10 Essential (primary) hypertension
CPT/HCPCS: 36415; 80053; 82043; 82306; 82607; 82746; 83036; 83525; 84443; 85025

== ENCOUNTER 2025-04-30 14:57 | Outpatient (CLI) | payer OTHER, SELFPAY ==
--- NOTE | ~2025-04-30 | XR_ITS ---
XR hip LT min 2V 04/30/2025 15:34 Indication: Left hip pain Procedure: 2 views left hip Comparison: 10/05/2020 Findings: There is mild-moderate osteoarthritis of the left hip. No fracture, subluxation or dislocation. No soft tissue abnormality. No foreign bodies. Impression: 1: Mild-moderate osteoarthritis of the left hip. Reviewed, dictated and finalized at location I. [employer] Impression: 1: Mild-moderate osteoarthritis of the left hip.
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
== END 2025-04-30 14:58 | disposition home or self-care (01) ==
PROVIDERS: PCP Physician Assistant; Visit Provider Physician Assistant
DX: S89.91XA Unspecified injury of right lower leg, initial encounter (principal); V89.2XXA Person injured in unspecified motor-vehicle accident, traffic, initial encounter; X58.XXXA Exposure to other specified factors, initial encounter; M16.12 Unilateral primary osteoarthritis, left hip
CPT/HCPCS: 73030; 73502; 73562